=== PATIENT | male | born 1970 | race Caucasian/White ===

== ENCOUNTER 2024-02-01 12:28 | Outpatient (OUT) | payer OTHER, SELFPAY ==
[2024-02-01 12:55] LABS: Basophils Percent Auto 0.4 % (0.2-2.0); Eosinophils Absolute Auto 0.1 10^3/uL (0.0-0.7); Eosinophils Percent Auto 1.4 % (0.9-7.0); Hemoglobin 14.5 g/dL (14.0-18.0); Immature Granulocytes Abs Auto 0.01 10^3/uL (0.00-0.03); Immature Granulocytes Pct Auto 0.1 % (0.0-0.5); Lymphocytes Absolute Auto 1.9 10^3/uL (1.2-3.8); Lymphocytes Percent Auto 24.2 % (20.5-60.0); Mean Corpuscular HGB Conc 33.7 g/dL (29.9-35.2); Mean Corpuscular Hemoglobin 30.7 pg (25.9-34.0); Mean Corpuscular Volume 91.1 fL (80.0-94.0); Mean Platelet Volume 9.2 fL (9.5-13.5); Monocytes Percent Auto 12.5 % (1.7-12.0); Neutrophils Absolute Auto 4.7 10^3/uL (1.4-6.5); Neutrophils Percent Auto 61.4 % (43.0-75.0); Platelet Count 228 10^3/uL (150-450); Red Blood Count 4.72 10^6/uL (4.70-6.10); Red Cell Distribution Width 12.6 % (11.0-15.0); White Blood Count 7.7 10^3/uL (4.0-11.0)
[2024-02-01 13:35] LABS: Alanine Aminotransferase 50 U/L (16-63); Albumin Globulin Ratio 0.9; Albumin Level 3.3 g/dL (3.4-5.0); Alkaline Phosphatase 67 U/L (46-116); Anion Gap 12.1; Aspartate Amino Transferase 27 U/L (15-37); BUN Creatinine Ratio 13.2; Bilirubin Total 0.5 mg/dL (0.2-1.0); Calcium 8.8 mg/dL (8.5-10.1); Carbon Dioxide 29.2 mmol/L (21.0-32.0); Chloride 103 mmol/L (98-107); Estimated GFR (African America >60 (>=60); Estimated GFR (Non-African Ame >60 (>=60); Globulin 3.5 g/dL; Glucose 99 mg/dL (74-106); Magnesium 2.1 mg/dL (1.8-2.4); Potassium 4.3 mmol/L (3.5-5.1); Sodium 140 mmol/L (136-145); Total Protein 6.8 g/dL (6.4-8.2)
== END 2024-02-01 12:29 | disposition home or self-care (01) ==
LOC: LAB 12:32
PROVIDERS: PCP Family Medicine; Visit Provider Family Medicine
DX: M62.838 Other muscle spasm (principal)
CPT/HCPCS: 36415; 80053; 83735; 85025

== ENCOUNTER 2024-11-25 08:25 | Outpatient (OUT) | payer OTHER, SELFPAY ==
--- OUTSIDE RECORDS SUMMARY | 2024-11-25 08:31 | XMS_ITS | CCD ---
Author Organization [facility] Care Team Providers Care Supervisor Receiving And Processing Name Role Phone DR MOSES HUTCHISON Consulting Unavailable JENNIFER, DR LOPES Primary Care Unavailable REQUEST, NONE LISTED Attending Jonela ble REQUEST, NONE LISTED Admitting Unavaila ABDIFATAH Bowden Attending Unavailable ABDIFATAH GREENE Consulting Unavailable ABDIFATAH GREENE Admitting Unavailable Moses Hutchison MD Primary Care Provider [phone] KIM RIVERA Attending Unavailable KIM RIVERA Referring Unavailable JOEL FLORES Attending Unavailable JOEL FLORES Attending Unavailable JOEL FLORES Referring Unavailable JOEL FLORES Attending Unavailable JOEL FLORES Attending Unavailable Allergies Allergy Classification Reported Allergen(s) Allergy Type Date of Onset Reaction(s) Facility (10 sources) Sulfonamides (Antibiotic) Drug Intolerance 4 Hives, Unknown [facility] Medications Current Medications Medication Drug Class(es) Dates Sig (Normalized) Sig (Original) cetirizine hydrochloride 10 mg oral tablet (10 sources) Histamine-1 Receptor Antagonist Start: 10-04-2023 take 1 tablet by mouth once daily cetirizine (ZyrTEC) 10 MG tablet TAKE 1 TABLET BY MOUTH EVERY DAY FOR 30 DAYS 10/04/2023 Active irbesartan 150 mg oral tablet (10 sources) Angiotensin 2 Receptor Jv Start: 05-25-2024 take 1 tablet by mouth once daily irbesartan (Avapro) 150 MG tablet TAKE 1 TABLET BY MOUTH EVERY DAY FOR 30 DAYS 05/25/2024 Active omeprazole 20 mg delayed release oral capsule (10 sources) Proton Pump Inhibitor Start: 05-25-2024 omeprazole (PriLOSEC) [address] capsule TAKE 1 CAPSULE BY MOUTH 30 MINUTES BEFORE MORNING MEAL EVERY DAY FOR 30 DAYS 90 DAYS 05/25/2024 Active Completed/Discontinued Medications Medication Drug Class(es) Dates Sig (Normalized) Sig (Original) methylPREDNISolone (7 sources) Corticosteroid Start: 07-25-2024 End: 08-16-2024 methylPREDNISolone (Medrol Dospak) 4 MG tablets Indications: Strain of left ankle, initial encounter Follow schedule on package instructions 21 tablet 07/25/2024 08/16/2024 Discontinued (Therapy completed) Start: 07-25-2024 methylPREDNISo lone (Medrol Dospak) 4 MG tablets Indications: Strain of left ankle, initial encounter Follow schedule on package instructions 21 tablet 07/25/2024 Active Problems Active Problems Problem Classification Problem Date Documented Da te Episodic/Chronic Other circulatory disease (1 source) Other specified symptoms and signs involving the circulatory and respiratory systems; Translations: [OTH SPEC SX SIGNS INVLV CIRC RS] Onset: 06-23-2022 Episodic Other non-traumatic joint disorders (6 sources) Acute ankle pain; Translations: [Pain in left ankle and joints of left foot] 07-25-2024 Episodic Sprains and strains (18 sources) Strain of muscle and/or tendon of lower leg; Translations: [Strain of unspecified muscle and tendon at ankle and foot level, left foot, initial encounter] Onset: 06-27-2014 07-25-2024 Episodic Unclassified (2 sources) CONTACT W/AND (SUSP) EXPOS COVID-19; Translations: [CONTACT W/AND (SUSP) EXPOS COVID-19] Onset: 06-23-2022 Unclassified (1 source) COUGH, UNSPECIFIED; Translations: [COUGH, UNSPECIFIED] Onset: 06-23-2022 Viral infection (1 source) COVID-19; Translations: [COVID-19] Onset: 06-23-2022 Past or Other Problems Problem Classification Problem Date Documented Da te Episodic/Chronic Unclassified (1 source) CONTACT W/AND (SUSP) EXPOS COVID-19; Translations: [CONTACT W/AND (SUSP) EXPOS COVID-19] Onset: 06-22-2022 Results Test Name Value Interpretation Reference Range Facility MR ANKLE LEFT WO IV CONTRAST on 08-21-2024 MR ANKLE LEFT WO IV CONTRAST EXAM/TECHNIQUE: MR ANKLE LEFT WO IV CONTRAST HISTORY: Left ankle pain. COMPARISON: Radiographs 07/25/2024. RESULT: Cartilage: Tibiotalar and subtalar joint cartilage appears preserved. Ligaments: Talofibular ligaments, tibiofibular ligaments, calcaneofibular ligament and deltoid ligament all appear to be intact. Tendons: Mild distal Achilles tendinosis, without tear, with trace fluid in the retrocalcaneal bursa. Joint Fluid: Physiologic quantity of joint fluid. Bone Marrow: No evidence for fracture, osteochondral lesion, osteomyelitis or other marrow replacing lesion. Plantar Aponeurosis: Plantar aponeurosis in within normal limits. Sinus Tarsi: Sinus tarsi is within normal limits. Muscle: Muscle bulk and signal intensity is within normal limits. Tarsal Tunnel: Tarsal tunnel is within normal limits. Other: No other significant abnormality. IMPRESSION: Mild distal Achilles tendinosis, without tear. Intact appearing ankle ligaments. ELECTRONICALLY SIGNED BY: Demetri Gibbons MD Normal Not Available Comment on above: Order Comment: C9 ap proval can be located in Pt media, please call and schedule pt DONALD No Panel Informationon 08-02 Kusum Chambers MA 08/08/2024 8:28 PM Splint Application Date/Time: 08/02/2024 5:19 PM Performed by: Kusum Chambers MA Authorized by: Joel Flores DO Consent: Consent obtained: Verbal Procedure details: Location: Ankle Ankle location: L ankle Strapping: yes Post-procedure details: Procedure completion: Tolerated Comments: DME was signed by pt Provided pt education for CAM Boot CAM Boot size M given to pt [employer] XR ANKLE 3+ VIEWS LEFTon XR ANKLE 3+ VIEWS LEFT Exam: XR ANKLE 3+ VIEWS LEFT Clinical History: Left ankle pain Reference Exam: No comparison FINDINGS: Congruent bony ankle mortise. Facets of the subtalar joint align appropriately. No acute fracture or other bony lesion. No foreign body. IMPRESSION: No acute abnormality is determined radiographically. Dictated on: 07/25/2024 1:44 PM This report has been electronically signed and approved by the interpreting Radiologist. Normal Not Available XR Ankle - left 3 Viewson Exam: XR ANKLE 3+ VIEWS LEFT Clinical History: Left ankle pain Reference Exam: No comparison FINDINGS: Congruent bony ankle mortise. Facets of the subtalar joint align appropriately. No acute fracture or other bony lesion. No foreign body. IMPRESSION: No acute abnormality is determined radiographically. Dictated on: 07/25/2024 1:44 PM This report has been electronically signed and approved by the interpreting Radiologist. IMAGING Norbert Sarkar MD - 07/25/2024 Exam: XR ANKLE 3+ VIEWS LEFT Clinical History: Left ankle pain Reference Exam: No comparison FINDINGS: Congruent bony ankle mortise. Facets of the subtalar joint align appropriately. No acute fracture or other bony lesion. No foreign body. IMPRESSION: No acute abnormality is determined radiographically. Dictated on: 07/25/2024 1:44 PM This report has been electronically signed and approved by the interpreting Radiologist. [facility] Powervation Radiology Study observation (narrative) [facility] Powervation XR Ankle - left 3 ViewsOrder ed By: Norbert Sarkar on 07-25-2024 [facility] Work Phone: CBC AUTO DIFFon 07-30-2022 BASO # 0.0 103/ul Normal 0.0-0.1 [facility] Comment on above: Performed By: #### D ATCBC #### [facility] [address] [place] [address] Dr. Juan Richards Basophils/100 WBC (Bld) 0.4 % Normal 0.2-2.0 [facility] Comment on above: Performed By: #### D ATCBC #### [facility] [address] [place] [address] Dr. Juan Richards EO # 0.2 103/ul Normal 0.0-0.7 [facility] Comment on above: Performed By: #### D ATCBC #### [facility] [address] [place] [address] Dr. Juan Richards Eosinophils/100 WBC (Bld) 2.1 % Normal 0.9-7.0 [facility] Comment on above: Performed By: #### D ATCBC #### [facility] [address] [place] [address] Dr. Juan Richards Erythrocyte distribution width (RBC) [Ratio] 13.6 % Normal 11.0-15.0 [facility] Comment on above: Performed By: #### D ATCBC #### [facility] [address] [place] [address] Dr. Juan Richards Hematocrit (Bld) [Volume fraction] 42.3 % Normal 42.0-54.0 [facility] Comment on above: Performed By: #### D ATCBC #### [facility] [address] [address] [address] Juan Richards Hemoglobin (Bld) [Mass/Vol] 14.5 g/dL Normal 14.0-18.0 [facility] Comment on above: Performed By: #### D ATCBC #### [facility] [address] [place] [address] Dr. Juan Richards IG # 0.03 10e3/ul Normal 0.00-0.03 [facility] Comment on above: Performed By: #### D ATCBC #### [facility] [address] [place] [address] Dr. Juan Richards IG % 0.4 % Normal 0.0-0.5 [facility] Comment on above: Performed By: #### D ATCBC #### [facility] [address] [place] [address] Dr. Juan Richards LYMPH # 2.3 103/ul Normal 1.2-3.8 [facility] Comment on above: Performed By: #### D ATCBC #### [facility] [address] [place] [address] Dr. Juan Richards Lymphocytes/100 WBC (Bld) 27.8 % Normal 20.5-60.0 [facility] Comment on above: Performed By: #### D ATCBC #### [facility] [address] [place] [address] Dr. Juan Richards MCH (RBC) [Entitic mass] 30.7 pg Normal 25.9-34.0 [facility] Comment on above: Performed By: #### D ATCBC #### [facility] [address] [place] [address] Dr. Juan Richards MCHC (RBC) [Mass/Vol] 34.3 g/dL Normal 29.9-35.2 [facility] Comment on above: Performed By: #### D ATCBC #### [facility] [address] [address] [address] Juan Richards MCV (RBC) [Entitic vol] 89.6 fL Normal 80.0-94.0 [facility] Comment on above: Performed By: #### D ATCBC #### [facility] [address] [address] [address] Juan Richards MONO # 0.9 103/ul Critically high 0.3-0.8 [facility] Comment on above: Performed By: #### D ATCBC #### [facility] [address] [address] [address] Juan Richards Monocytes/100 WBC (Bld) 11.4 % Normal 1.7-12.0 [facility] Comment on above: Performed By: #### D ATCBC #### [facility] [address] [place] [address] Dr. Juan Richards NEUT # 4.7 103/ul Normal 1.4-6.5 [facility] Comment on above: Performed By: #### D ATCBC #### [facility] [address] [place] [address] Dr. Juan Richards Neutrophils/100 WBC (Bld) 57.9 % Normal 43.0-75.0 [facility] Comment on above: Performed By: #### D ATCBC #### [facility] [address] [place] [address] Dr. Juan Richards Platelet mean volume (Bld) [Entitic vol] 9.4 fL Critically low 9.5-13.5 [facility] Comment on above: Performed By: #### D ATCBC #### [facility] [address] [place] [address] Dr. Juan Richards PLT 323 103/ul Normal 150-450 [facility] Comment on above: Performed By: #### D ATCBC #### [facility] [address] [place] [address] Dr. Juan Richards RBC 4.72 106/ul Normal 4.70-6.10 [facility] Comment on above: Performed By: #### D ATCBC #### [facility] [address] [address] [address] Juan Richards WBC 8.2 103/ul Normal 4.0-11.0 [facility] Comment on above: Performed By: #### D ATCBC #### [facility] [address] [place] [address] Dr. Juan Richards KAMALJIT- BMP WITH LIPIDon 2022 Anion gap [Moles/Vol] 12.3 mmol/L Normal [facility] Comment on above: Performed By: #### D ATBMP, DATPSA #### [facility] [address] [place] [address] Dr. Juan Richards Calcium [Mass/Vol] 9.2 mg/dL Normal 8.5-10.1 [facility] Comment on above: Performed By: #### D ATBMP, DATPSA #### [facility] [address] [place] [address] Dr. Juan Richards Chloride [Moles/Vol] 102 mmol/L Normal 98-107 [facility] Comment on above: Performed By: #### D ATBMP, DATPSA #### [facility] [address] [place] [address] Dr. Juan Richards Cholesterol [Mass/Vol] 217 mg/dL Critically high <=200 [facility] Comment on above: Performed By: #### D ATBMP, DATPSA #### [facility] [address] [place] [address] Dr. Juan Richards Cholesterol in HDL [Mass/Vol] 67 mg/dL Critically high 40-60 [facility] Comment on above: Performed By: #### D ATBMP, DATPSA #### [facility] [address] [place] [address] Dr. Juan Richards Cholesterol in LDL [Mass/Vol] 137.8 mg/dL Normal [facility] Comment on above: Performed By: #### D ATBMP, DATPSA #### [facility] [address] [place] [address] Dr. Juan Richards CO2 [Moles/Vol] 28.6 mmol/L Normal 21.0-32.0 [facility] Comment on above: Performed By: #### D ATBMP, DATPSA #### [facility] [address] [address] [address] Juan Richards Creatinine [Mass/Vol] 0.92 mg/dL Normal 0.70-1.30 [facility] Comment on above: Performed By: #### D ATBMP, DATPSA #### [facility] [address] [address] [address] Juan Richards EGFR-AF SUDANESE >60 Normal >=60 [facility] Comment on above: Performed By: #### D ATBMP, DATPSA #### [facility] [address] [address] [address] Juan Richards EGFR-NON AF SUDANESE >60 Normal >=60 [facility] Comment on above: Performed By: #### D ATBMP, DATPSA #### [facility] [address] [address] [address] Juan Richards Glucose [Mass/Vol] 94 mg/dL Normal 74-106 [facility] Comment on above: Performed By: #### D ATBMP, DATPSA #### [facility] [address] [address] [address] Juan Richards HDL NORMAL > or = 60 mg/dl - LO W CARDIOVASCULAR RISK <40 mg/dl - HIGH CARDIOVASCULAR RISK Normal [facility] Comment on above: Performed By: #### D ATBMP, DATPSA #### [facility] [address] [address] [address] Juan Richards LDL CALC NORMAL SEE BELOW Normal [facility] Comment on above: Result Comment: <100 mg/dl OPTIMAL 100 - 129 mg/dl NEAR OR ABOVE OPTIMAL 130 - 159 mg/dl BORDERLINE HIGH 160 - 189 mg/dl HIGH >190 mg/dl VERY HIGH Performed By: #### D ATBMP, DATPSA #### [facility] [address] [address] [address] Juan Richards Potassium [Moles/Vol] 3.9 mmol/L Normal 3.5-5.1 [facility] Comment on above: Performed By: #### D ATBMP, DATPSA #### [facility] [address] [place] [address] Dr. Juan Richards Sodium [Moles/Vol] 139 mmol/L Normal 136-145 [facility] Comment on above: Performed By: #### D ATBMP, DATPSA #### [facility] [address] [place] [address] Dr. Juan Richards Triglyceride [Mass/Vol] 61 mg/dL Normal <=150 [facility] Comment on above: Performed By: #### D ATBMP, DATPSA #### [facility] [address] [place] [address] Dr. Juan Richards Urea nitrogen [Mass/Vol] 18.0 mg/dL Normal 7.0-18.0 [facility] Comment on above: Performed By: #### D ATBMP, DATPSA #### [facility] [address] [place] [address] Dr. Juan Richards Urea nitrogen/Creatinine [Mass ratio] 19.6 mg/mg Normal [facility] Comment on above: Performed By: #### D ATP, DATPSA #### [facility] [address] [place] [address] Dr. Juan Richards VLDL CALC 12.2 mg/dL Normal [facility] Comment on above: Performed By: #### D ATBMP, DATPSA #### [facility] [address] [place] [address] Dr. Juan Richards Covid-19 PCR (CVDTB)on SARS-CoV-2 (COVID-19) RNA DAMION+probe Ql (Unsp spec) Detected Abnormal NOT DETECTED [facility] Comment on above: Result Comment: This test is not yet approved or cleared by the [place] FDA. When there are no FDA-approved or cleared tests available, and other criteria are met, FDA can make tests available under an emergency access mechanism called an Emergency Use Authorization (EUA). The EUA for this test is supported by the [place] of Health and Human Service's declaration that circumstances exist to justify the emergency use of in vitro diagnostics for the detection and/or diagnosis of the virus that causes COVID-19. This EUA will remain in effect for the duration of the COVID-19 declaration justifying emergency of IVDs, unless it is terminated or revoked by the FDA (after which the test may no longer be used). Performed By: #### C VDTB #### [facility] [address] [place] [address] Dr. Juan Richards INFLUENZA A AND B AGon 06-22 [facility] SEE BELOW Normal [facility] Comment on above: Result Comment: Nega tive for Flu A protein angiten. Infection due to Flu A cannot be ruled out. Flu A angiten in the sample may be below the detection limit of the test. Performed By: #### I NFLUAB #### [facility] [address] [place] [address] Dr. Juan Richards [facility] SEE BELOW Normal [facility] Comment on above: Result Comment: Nega tive for Flu B protein antigen. Infection due to Flu B cannot be ruled out. Flu B antigen in the sample may be below the detection limit of the test. Performed By: #### I NFLUAB #### [facility] [address] [place] [address] Dr. Juan Richards INFLUENZA A AG Negative Normal NEGATIVE SEE COMMENT [facility] Comment on above: Performed By: #### I NFLUAB #### [facility] [address] [place] [address] Dr. Juan Richards INFLUENZA B AG Negative Normal NEGATIVE SEE COMMENT [facility] Comment on above: Performed By: #### I NFLUAB #### [facility] [address] [place] [address] Dr. Juan Richards Vital Signs Date Time Vital Sign Value Performing Clinician Faci lity 2024 15:32-0400 Body temperature 98.01 [degF] Joel Flores DO Work Phone: [facility] 2024 15:32-0400 Body weight 90.72 kg Joel Flores DO Work Phone: [facility] 2024 15:32-0400 Diastolic blood pressure 80 mm[Hg] Joel Flores DO Work Phone: [facility] 2024 15:32-0400 Heart rate 80 /min Joel Flores DO Work Phone: [facility] 2024 15:32-0400 SaO2% (BldA) [Mass fraction] 99 % Joel Flores DO Work Phone: [facility] 2024 15:32-0400 Systolic blood pressure 122 mm[Hg] Joel Flores DO Work Phone: [facility] 08-16-2024 14:31-0500 Body temperature 97.11 [degF] Joel Flores DO Work Phone: [facility] 08-16-2024 14:31-0500 Body weight 90.72 kg Joel Flores DO Work Phone: [facility] 08-16-2024 14:31-0500 Diastolic blood pressure 80 mm[Hg] Joel Flores DO Work Phone: [facility] 08-16-2024 14:31-0500 Heart rate 71 /min Joel Flores DO Work Phone: [facility] 08-16-2024 14:31-0500 SaO2% (BldA) [Mass fraction] 97 % Joel Flores DO Work Phone: [facility] 08-16-2024 14:31-0500 Systolic blood pressure 128 mm[Hg] Joel Flores DO Work Phone: [facility] 08-02-2024 16:04-0500 Body temperature 98.01 [degF] Joel Flores DO Work Phone: [facility] 08-02-2024 16:04-0500 Body weight 90.72 kg Joel Flores DO Work Phone: [facility] 08-02-2024 16:04-0500 Diastolic blood pressure 80 mm[Hg] Joel Flores DO Work Phone: [facility] 08-02-2024 16:04-0500 Heart rate 74 /min Joel Flores DO Work Phone: [facility] 08-02-2024 16:04-0500 SaO2% (BldA) [Mass fraction] 98 % Joel Flores DO Work Phone: [facility] 08-02-2024 16:04-0500 Systolic blood pressure 112 mm[Hg] Joel Crewsconsuelo DO Work Phone: [facility] 07-25-2024 13:02-0500 Body temperature 97 [degF] Kim Rivera [employer]ERK Work Phone: [facility] 07-25-2024 13:02-0500 Body weight 90.72 kg Kim Rivera [employer] CLERK Work Phone: [facility] 07-25-2024 13:02-0500 Diastolic blood pressure 80 mm[Hg] Kim Rivera [employer] CLERK Work Phone: [facility] 07-25-2024 13:02-0500 Heart rate 91 /min Kim Rivera [employer] CLERK Work Phone: [facility] 07-25-2024 13:02-0500 SaO2% (BldA) [Mass fraction] 96 % Kim Rivera [employer] CLERK Work Phone: [facility] 07-25-2024 13:02-0500 Systolic blood pressure 136 mm[Hg] Kim Rivera [employer] CLERK Work Phone: [facility] Healthcare Encounters Encounter Date Encounter Type Care Provider Facility Start: 2024 End: 2024 ambulatory JOEL FLORES Not Available Start: 2024 End: 2024 Office outpatient visit 15 minutes Joel Flores DO Work Phone: [facility] Comment on above: Strain of left ankle , initial encounter; Acute left ankle pain Start: 2024 End: 2024 Bamboo flowsheet Joel Flores DO Work Phone: [facility] Start: 2024 End: 2024 Bamboo flowsheet Joel Flores DO Work Phone: [facility] Start: 08-23-2024 End: 08-23-2024 ambulatory JOEL FLORES Not Available Start: 08-21-2024 End: 08-21-2024 ambulatory JOEL FLORES Not Available Start: 08-16-2024 End: 08-16-2024 ambulatory JOEL FLORES Not Available Start: 08-16-2024 End: 08-16-2024 Office outpatient visit 25 minutes Joel Flores DO Work Phone: [facility] Comment on above: Strain of left ankle , initial encounter (Primary Dx) Start: 08-16-2024 End: 08-16-2024 Bamboo flowsheet Joel Flores DO Work Phone: [facility] Start: 08-16-2024 End: 08-16-2024 Bamboo flowsheet Joel Flores DO Work Phone: [facility] Start: 08-02-2024 End: 08-02-2024 Office outpatient visit 25 minutes Joel Flores DO Work Phone: [facility] Comment on above: Strain of left ankle , initial encounter; Acute left ankle pain Start: 08-02-2024 End: 08-02-2024 ambulatory JOEL FLORES Not Available Start: 07-25-2024 End: 07-25-2024 ambulatory KIM RIVERA Not Available Start: 07-25-2024 End: 07-25-2024 Office outpatient new 45 minutes Kim Rivera [employer]ERK Work Phone: [facility] Comment on above: Strain of left ankle , initial encounter (Primary Dx); Acute left ankle pain Start: 07-30-2022 End: 07-31-[address] MOSES HUTCHISON Facility:[facility] Start: 06-22-2022 End: 06-22-2022 ambulatory ABDIFATAH GREENE Facility:[facility] Procedures Date Procedure Procedure Detail Performing Clinician Start: 08-02-2024 Strapping ankle &/foot Kusum Chambers MA Start: 07-25-2024 Radex ankle complete minimum 3 views Kim Rivera [employer] CLERK Work Phone: Start: 07-30-[address] DANNA HUTCHISON Comment on above: Performed By: #### D ATBM, DATPSA #### [facility] [address] [place], [place] [address] Dr. Juan Richards Plan of Treatment Date Care Activity Detail Author Start: 08-16-2024 End: 08-16-2024 Patient encounter procedure 08/16/2024 4:00 PM EST Office Visit [facility] [address] [place] [address] [facility] Start: 08-02-2024 End: 08-02-2024 Patient encounter procedure 08/02/2024 6:00 PM EST Office Visit [facility] [address] [place] [address] [facility] Payers Date Payer Category Payer Worker's Compensation [id number] [id number] 2024 Worker's Compensation [id number] 1970 Unknown [id number] 2.16.84 [id number] 1970 Unknown [id number] 2.16.84 [id number] 1969 Unknown [id number] 2.16.84 [id number] 1969 Unknown [id number] 2.16.84 [id number] 1969 Unknown [id number] 2.16.84 [id number] 1969 Unknown [id number] 2.16.84 [id number] 1970 Unknown [id number] 2.16.84 [id number] 1970 Unknown [id number] 2.16.84 [id number] 1970 Unknown [id number] 2.16.84 [id number] 1970 Unknown [id number] 2.16.84 [id number] 1960 Self-pay 1960 Unknown [id number] Unknown [id number] 2.16.84 [id number] Social History Date Type Detail Facility [facility] Start: 1970 Sex assigned at Not on file [facility] Gender identity Not on file [facility] History of Present illness Narrative 2024 Neda Cancino LPN - 2024 3:05 PM EDT Note Date & Type Note Facility 2024 History of Presen t illness Narrative HPI: Historian of HPI: patient Sylvain Dubois is a 54 y.o. male Pt presents today 2024 for a [facility] follow up visit - ASUNCION: [facility] . DOI: 05/15/2024 . 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 Pt denies any pain or issues at this time. ROS: A complete system ROS was performed and negative aside from the pertinent positives noted in the HPI and PE. Examination: General Examination: General Examination: Alert, oriented, normal affect, well-appearing, in no acute distress, well developed, well nourished. Head: Normocephalic, atraumatic Eyes: Sclera anicteric. Neck/Thyroid: Neck supple, full range of motion Lymph Nodes: no cervical adenopathy Skin: Normal Heart: no murmurs, regular rate and rhythm, S1, S2 normal Lungs: clear to auscultation bilaterally Musculoskeletal: left ankle; no swelling or tenderness noted over the achilles. FROM Sonido's neg. Sammie's neg. Extremities: no clubbing, cyanosis Peripheral Pulses: 2+ posterior tibial, 2+ dorsalis pedis Neurologic: nonfocal Psych: alert, oriented, cognitive function intact, cooperative with exam HPI, ROS, and PE reviewed and amended by Dr. Joel Flores as necessary. Written by LOKESH Mendez 1. Strain of left ankle, initial encounter Dx reviewed. Pt back to normal, pt is discharged at this time. 2. Acute left ankle pain Dx reviewed documented in this encounter [facility] History of Present illness Narrative 08-16-2024 Kimberly Head MA - 08/16/2024 2:20 PM EST Note Date & Type Note Facility 08-16-2024 History of Presen t illness Narrative Pt presents today for a [facility] follow up visit - ASUNCION: [facility]. DOI: 05/15/2024 HPI: Historian of HPI: patient Sylvain Dubois is a 53 y.o. male who presents today to the Urgent Care with the following complaints and denials due left ankle pain which has been present for since 05/15/2024 C/O Denies Symptom Comments [] [x] swelling [] [x] ecchymosis [] [x] erythema [] [x] tingling [] [x] numbness [] [x] Pain radiation [x] [] Weakness [] [x] Decreased ROM [x] [] Trauma [facility] Additional Comments: pt has not taken any OTC medications Pt denies heat application to the affected area Pt denies cold application to the affected area Pt stated he is tired of wearing the boot and is tired of light duty where its cold pt stated employer is now following restrictions. Pt stated he would rather deal with the pain than wear the boot. Pt stated he needs a different brace so that he can wear his boots. Pt stated the pain is no longer going up the back of his leg. ROS: A complete system ROS was performed and negative aside from the pertinent positives noted in the HPI and PE. Examination: General Examination: General Examination: Alert, oriented, normal affect, well-appearing, in no acute distress, well developed, well nourished. Head: Normocephalic, atraumatic Eyes: Sclera anicteric. Neck/Thyroid: Neck supple, full range of motion Lymph Nodes: no cervical adenopathy Skin: Early ecchymosis noted diffusely around lateral aspect of ankle Heart: no murmurs, regular rate and rhythm, S1, S2 normal Lungs: clear to auscultation bilaterally Musculoskeletal: left ankle; tenderness Slight over the swelling over proximal achilles, Slight swelling over the proximal achilles tendon. Increased with full dorsiflexion and Head's neg. Drawer's neg. Extremities: no clubbing, cyanosis Peripheral Pulses: 2+ posterior tibial, 2+ dorsalis pedis Neurologic: nonfocal Psych: alert, oriented, cognitive function intact, cooperative with exam HPI, ROS, and PE reviewed and amended by Dr. Joel Flores as necessary. Written by LOKESH Mendez 1. Strain of left ankle, initial encounter Dx reviewed awaiting approval for MRI. Sit down work only. RTC 08/30/24 @ 4 pm. Case discussed with Christen from [facility]. 2. Acute left ankle pain Dx reviewed documented in this encounter [facility] History of Present illness Narrative 08-02-2024 Neda Cancino LPN - 08/02/2024 3:50 PM Vivek Chambers MA - 08/02/2024 3:50 PM EST Note Date & Type Note Facility 08-02-2024 History of Presen t illness Narrative HPI: Historian of HPI: patient Sylvain Dubois is a 53 y.o. male Pt presents today 08/02/2024 for a [facility] follow up visit for left ankle/foot injury- ASUNCION: [facility] . DOI: 05/15/2024 . 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 Pt rates pain 8/10 and states it feels unstable up the back of his ankle. Pt had some relief for one day . Pt states at work he has to change pout boots and insoles from the pain. Pt c/o difficulty walking. Pt not taking anything OTC for pain at time. Pt states I'm on light duty but they don't really have light duty there . ROS: A complete system ROS was performed and negative aside from the pertinent positives noted in the HPI and PE. Examination: General Examination: General Examination: Alert, oriented, normal affect, well-appearing, in no acute distress, well developed, well nourished. Head: Normocephalic, atraumatic Eyes: Sclera anicteric. Neck/Thyroid: Neck supple, full range of motion Lymph Nodes: no cervical adenopathy Skin: Early ecchymosis noted diffusely around lateral aspect of ankle Heart: no murmurs, regular rate and rhythm, S1, S2 normal Lungs: clear to auscultation bilaterally Musculoskeletal: left ankle; tenderness from the insertion site of the achilles tendon superior to involve the tendon, Slight swelling over the proximal achilles tendon. Increased with full dorsiflexion and Head's neg. Drawer's neg. Extremities: no clubbing, cyanosis Peripheral Pulses: 2+ posterior tibial, 2+ dorsalis pedis Neurologic: nonfocal Psych: alert, oriented, cognitive function intact, cooperative with exam HPI, ROS, and PE reviewed and amended by Dr. Joel Flores as necessary. Written by LOKESH Mendez 1. Strain of left ankle, initial encounter Dx reviewed Submit C9 for Cam boot, Sit down work only. RTC 08/16/24 at 4 pm. Case discussed with Christen from [facility]. 2. Acute left ankle pain Dx reviewed Associated Order(s): Splint Application Post-Procedure Diagnose(s): Strain of left ankle, initial encounter Images from the original note were not included. Patient ID: Sylvain Dubois is a 53 y.o. male. Splint Application Date/Time: 08/02/2024 5:19 PM Performed by: Kusum Chambers MA Authorized by: Joel Flores DO Consent: Consent obtained: Verbal Procedure details: Location: Ankle Ankle location: L ankle Strapping: yes Post-procedure details: Procedure completion: Tolerated Comments: DME was signed by pt Provided pt education for CAM Boot CAM Boot size M given to pt documented in this encounter [facility] History of Present illness Narrative 07-25-2024 Kim Rivera NP - 07/25/2024 12:30 PM EST Note Date & Type Note Facility 07-25-2024 History of Presen t illness Narrative Pt presents today for a [facility] initial visit - ASUNCION: [facility]. DOI: 05/15/2024 . 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 male who presents today to the Urgent Care with the following complaints and denials due left foot pain which has been present since 05/15/2024 C/O Denies Symptom Comments [x] [] swelling Maybe a little [] [x] ecchymosis [] [x] erythema [] [x] tingling [] [x] numbness [x] [] Pain radiation Sometimes up bottom of foot [x] [] Weakness [x] [] Decreased ROM [x] [] Trauma Additional Comments: pt has taken motrin OTC medication without relief Pt admits to heat application to the affected area Pt stated most of his pain is on the bottom of his feel. Pt stated he felt a pop Pt stated the longer the day goes, the worse it feels. Pt stated when he gets home from work it really bothers him to get out of his vehicle and walk. ROS: A complete system ROS was performed and negative aside from the pertinent positives noted in the HPI and PE. Examination: General Examination: General Examination: Alert, oriented, normal affect, well-appearing, in no acute distress, well developed, well nourished. Head: Normocephalic, atraumatic Eyes: Sclera anicteric. Neck/Thyroid: Neck supple, full range of motion Skin: no rash or ecchymosis to left foot and ankle. Musculoskeletal: left ankle; tenderness over calcaneous. Tenderness over insertion site of achilles. No tenderness over calf. Head's sign neg. FROM ankle with posterior tenderness with dorsi and plantar flexion. Extremities: no clubbing, cyanosis Peripheral Pulses: 2+ posterior tibial, 2+ dorsalis pedis left Neurologic: nonfocal Psych: alert, oriented, cognitive function intact, cooperative with exam 1. Strain of left ankle, initial encounter (Primary) Xray left ankle obtained; prelim interp neg for fx, pos for STS. Warm soaks as directed. Due to ongoing sx, will submit C9 for MRI left ankle w/o and ortho consult. RTW with restrictions, -see medco 14. Follow up next Wed for recheck. Start medrol-see rx, discussed Se, no NSAIDS with use. 2. Acute left ankle pain See 1 - XR ankle 3+ views left documented in this encounter [facility] Evaluation note Note Date & Type Note Facility Evaluation note Diagnosis Strain of left ankle, initial encounter- Primary Acute left ankle pain documented in this encounter [facility] Evaluation note Note Date & Type Note Facility Evaluation note Diagnosis Strain of left ankle, initial encounter Acute left ankle pain documented in this encounter [facility] Evaluation note Note Date & Type Note Facility Evaluation note Diagnosis Strain of left ankle, initial encounter- Primary documented in this encounter [facility] Evaluation note Note Date & Type Note Facility Evaluation note Diagnosis Strain of left ankle, initial encounter Acute left ankle pain documented in this encounter [facility] Summary Purpose Family History No Family History Records FoundNo Family History Records Found Advance Directives No Advanced Directives Records FoundNo Advanced Directives Records Found Additional Source Comments (unrecognized sect ion and content) No Status Records FoundNo Status Records Found INFORMATION SOURCE (unrecogn ized section and content) DATE CREATED AUTHOR 07/31/2022 [facility] DATE CREATED AUTHOR 'S ORGANIZ ATION 09/07/2024 [facility] EPIC Care Teams (unrecognized sec tion and content) Supervisor Receiving And Processing Relationship Specialty Start Date End Date Moses Hutchison MD [address] [place] [address] PCP - General Family Medicine 07/25/24 Supervisor Receiving And Processing Relationship Specialty Start Date End Date Moses Hutchison MD [address] [place] [facility] [place] [address] PCP - General Family Medicine 07/25/24 Supervisor Receiving And Processing Relationship Specialty Start Date End Date Moses Hutchison MD [address] [place] [facility] [place] [address] PCP - General Family Medicine 07/25/24 Supervisor Receiving And Processing Relationship Specialty Start Date End Date Moses Hutchison MD [address] [place] [id number] PCP - General Family Medicine 07/25/24 Supervisor Receiving And Processing Relationship Specialty Start Date End Date Moses Hutchison MD [address] [place] [address] PCP - General Family Medicine 07/25/24 Supervisor Receiving And Processing Relationship Specialty Start Date End Date Moses Hutchison MD [address] [place] [address] PCP - General Family Medicine 07/25/24 FOR RECORDS PERTAINING TO PATIENTS WHO ARE OR HAVE BEEN ENROLLED IN A CHEMICAL DEPENDENCY/SUBSTANCEABUSE PROGRAM, SOME INFORMATION MAY BE OMITTED. This clinical summary was aggregated from multiple sources. Caution should be exercised in using it in the provision of clinical care. This summary normalizes information from multiple sources, and as a consequence, information in this document may materially change the coding, format and clinical context of patient data. In addition, data may be omitted in some cases. CLINICAL DECISIONS SHOULD BE BASED ON THE PRIMARY CLINICAL RECORDS. [facility]. provides no warranty or guarantee of the accuracy or completeness of information in this document.
[2024-11-25 09:13] LABS: Basophils Percent Auto 0.7 % (0.2-2.0); Eosinophils Absolute Auto 0.3 10^3/uL (0.0-0.7); Eosinophils Percent Auto 4.8 % (0.9-7.0); Hemoglobin 20.2 g/dL (14.0-18.0); Immature Granulocytes Abs Auto 0.01 10^3/uL (0.00-0.03); Immature Granulocytes Pct Auto 0.2 % (0.0-0.5); Lymphocytes Absolute Auto 1.6 10^3/uL (1.2-3.8); Lymphocytes Percent Auto 28.4 % (20.5-60.0); Mean Corpuscular HGB Conc 34.8 g/dL (29.9-35.2); Mean Corpuscular Hemoglobin 31.4 pg (25.9-34.0); Mean Corpuscular Volume 90.2 fL (80.0-94.0); Mean Platelet Volume 10.2 fL (9.5-13.5); Monocytes Absolute Auto 0.7 10^3/uL (0.3-0.8); Monocytes Percent Auto 12.5 % (1.7-12.0); Neutrophils Percent Auto 53.4 % (43.0-75.0); Platelet Count 241 10^3/uL (150-450); Red Blood Count 6.43 10^6/uL (4.70-6.10); Red Cell Distribution Width 13.2 % (11.0-15.0); White Blood Count 5.7 10^3/uL (4.0-11.0)
[2024-11-25 09:59] LABS: Alanine Aminotransferase 25 U/L (16-63); Albumin Globulin Ratio 1.1; Albumin Level 3.6 g/dL (3.4-5.0); Alkaline Phosphatase 88 U/L (46-116); Anion Gap 16.7; Aspartate Amino Transferase 17 U/L (15-37); BUN Creatinine Ratio 16.2; Bilirubin Total 0.5 mg/dL (0.2-1.0); Calcium 9.2 mg/dL (8.5-10.1); Carbon Dioxide 24.5 mmol/L (21.0-32.0); Chloride 104 mmol/L (98-107); Chol HDL Ratio 2.2; Cholesterol 162 mg/dL (<=200); Estimated GFR (African America >60 (>=60 mL/min/1.73m^2); Estimated GFR (Non-African Ame >60 (>=60 mL/min/1.73m^2); Globulin 3.4 g/dL; Glucose 83 mg/dL (74-106); HDL Cholesterol 73 mg/dL (40-60); Potassium 4.2 mmol/L (3.5-5.1); Sodium 141 mmol/L (136-145); Thyroid Stimulating Hormone 1.573 uIU/mL (0.358-3.740); Triglycerides 149 mg/dL (<=150); VLDL CHOLESTEROL 29.8 mg/dL
[2024-11-25 10:10] LABS: Prostate Specific Antigen Scrn 0.88 ng/mL (<=4.00)
[2024-11-25 10:15] LABS: Estimated Average Glucose 114 mg/dL; Glycohemoglobin A1C 5.6 % (4.5-6.2)
== END 2024-11-25 08:26 | disposition home or self-care (01) ==
PROVIDERS: PCP Family Medicine; Visit Provider Family Medicine
DX: Z00.00 Encounter for general adult medical examination without abnormal findings (principal); R73.09 Other abnormal glucose; R53.83 Other fatigue; Z12.5 Encounter for screening for malignant neoplasm of prostate
CPT/HCPCS: 36415; 80053; 80061; 83036; 84436; 84443; 84481; 85025; G0103

== ENCOUNTER 2024-11-27 14:49 | Outpatient (REF) | payer OTHER, SELFPAY ==
[2024-11-27 15:34] LABS: Internal Control Within Normal Limits; Occult Blood Negative
== END 2024-11-27 14:50 | disposition home or self-care (01) ==
LOC: LAB 14:49
PROVIDERS: PCP Family Medicine; Visit Provider Family Medicine
DX: Z00.00 Encounter for general adult medical examination without abnormal findings (principal)
CPT/HCPCS: G0328

== ENCOUNTER 2024-11-28 15:00 | Outpatient (OUT) | payer OTHER, SELFPAY ==
--- OUTSIDE RECORDS SUMMARY | 2024-11-20 03:52 | XMS_ITS ---
Author Organization [facility] in [place] Address [address] [place] [address] Care Team Providers Care Government Operations Consultant Name Role Phone FosterSamm Primary Care Provider REASON FOR VISIT need yearly Encounters Encounter Location Date Provider Diagnosis [facility] [address] [place] [address] 11/20/2024 Samm Hutchison Plan Of Treatment No Information Progress Notes * Sylvain DUBOISDOB: (54 yo M)Acc No.[id number]:11/20/2024 Patient: Дмитрий ROONEYSylvain GREEN :1970 A ge:54 Y S ex:Male Address:[address], [place] [address] * true * Date: Generated for Shaheen mishra/Yakov/eTransmitting on: 0 11/28/2024 03:02 PM EDT
--- OUTSIDE RECORDS SUMMARY | 2024-11-22 12:15 | XMS_ITS ---
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 Paperhanging Name Role Phone Samm Hutchison Primary Care Provider Allergies Allergen (clinical drug ingredient) Drug/Non Drug Allergy documented on EMR Reaction Allergy Type Onset Date Status lisinopril Lisinopril cough Drug Allergy Activ e Substance with sulfonamide structure and antibacterial mechanism of action (substance) Sulfa Antibiotics Unknown Drug Allergy Active REASON FOR VISIT annual wellness, left foot inflammation/swelling Medications Medication SIG (Take, Route, Fr equency, Duration) Notes Start Date End Date Status Cetirizine HCl 10 MG 1 tablet Orally Onc e a day for 30 days 09/26/2024 Active Meloxicam 15 MG 1 tablet Orally Once a day for 30 days 11/22/2024 Active Irbesartan 150 MG 1 tablet Orally Once a day for 30 days Active Omeprazole 20 MG 1 capsule 1/2 to 1 h our before morning meal Orally Once a day for 30 days 09/15/2024 Active Social History Tobacco Use: Social History Observation Description Date Details (start date - stop date) Never Smoker NA - NA Tobacco Use/Smoking Question Answer Notes Patient is a nonsmoker AUDIT-C (Standard) Question Answer Notes Did you have a drink containing alcohol in the p ast year? No Points 0 Interpretation Negative Vital Signs Weight 199 lbs 11/22/2024 Height 68 in 11/22/2024 Blood pressure systolic 132 mm Hg 11/23/19 25 Blood pressure diastolic 80 mm Hg 025 BMI 30.25 kg/m2 11/22/2024 Encounters Encounter Location Date Provider Diagnosis [facility] [address] [facility] [place] [address] 11/22/2024 Samm Hutchison Well adult Z00.00 an d Plantar fasciitis M72.2 Assessments Encounter Date Diagnosis (ICD Code) Assessment Notes Treatment Notes Treatment Clinical Notes Section Notes 11/22/2024 Well adult (ICD-10 - Z00.00) 11/22/2024 Plantar fasciitis (ICD-10 - M72.2) Plan Of Treatment Medication Medication Name Sig Start Date Stop Date Notes Meloxicam 15 MG 1 tablet Orally Once a day for 30 days 04/2025 Pending Test Test Name Order Date HEMOGLOBIN A1C (GLYCO) 11/22/2024 LIPID PANEL (CHOL/TRIG/HDL/LDL) 11/23/19 25 STOOL OCCULT BLOOD 11/22/2024 THYROID PANEL (T4/TSH/FREE T3) PSA, SCREENING 11/22/2024 CMP (COMP MET QUINONES) w/eGFR CKD-EPI 2024 CBC WITH DIFF 11/22/2024 Progress Notes * Sylvain DUBOISDOB: (54 yo M)Acc No.[id number]:11/22/2024 Progress Note Patient: Дмитрий AARONSylvain BANERJEE Provider: Geovany Hutchison ([facility])MD :1970 A ge:54 Y S ex:Male Date:11/22/2024 Address:[address] [place], [place] [id number] Check In:03:44 PM ESTCheck O ut:04:43 PM EST Subjective: * Chief Complaints: * A nnual wellnessLeft foot inflammation/swelling * HPI: D epression Screening: PHQ-2 (2015 Edition) L ittle interest or pleasure in doing things??Not at all F eeling down, depressed, or hopeless? N ot at all T otal Score 0 Left heel - with pain first thing - and worse as day goes along no ther issu. * ROS: E ENT: hearing changes d enies. v isual changes d enies.?non-healing mouth sores d enies. s wollen glands or neck lumps d enies. h oarseness d enies. s ore throat d enies. d ifficulty swallowing d enies. n ose bleeds d enies. n devante congestion d enies. e ar ache d enies. e ar discharge?denies. r inging in ears d enies. l ight sensitivity d enies. e ye pain d enies. b lurring d enies. e ye irritation d enies. d ouble vision d enies.?vision loss d enies. G eneral/Constitutional: Sweats: D enies. F atigue d enies. S leep problems d enies. A norexia d enies. M alaise d enies. W eight loss d enies.?Fatigue or Weakness d enies. F ever or Chills d enies. C ardiovascular: Shortness of Breath w/lying flat d enies. L ightheadedness/dizziness d enies. C hest tightness/ heavy pressure d enies. S welling of legs, ankles, or feet d enies. W aking up with shortness of breath d enies. C hest pain denies. P alpitations d enies. W eight gain d enies. R espiratory: Chronic or frequent cough d enies. C oughing up blood?denies. D ifficulty breathing d enies. P roductive cough d enies. S noring?denies. S hortness of breath that awakens from sleep (PND) d enies. C hest pain d enies. S putum production d enies. W heezing d enies. M usculoskeletal: Joint pain d enies. J oint Fluid d enies. B ack pain d enies. K nee pain d enies. N kev pain d enies. J oint Stiffness d enies. M uscle cramps d enies. W eakness of muscles d enies. A rthritis d enies. M uscle aches d enies. P ain in shoulder(s) d enies. S wollen joints d enies. * Active Problem List M72.2 Plantar fasciitis Modified On:08/04/2023W/U Status:confirmed Z00.00 Well adult Modified On:08/04/2023W/U Status:confirmed L25.9 Contact dermatitis Modified On:01/06/2024W/U Status:confirmed M62.838 Muscle spasm Modified On:02/01/2024W/U Status:confirmed D75.1 Polycythemia Modified On:11/27/2024W/U Status:confirmed * Medical History: * Surgical History: M eniscectomy lateral Plate and Seven screws in right ankle * Hospitalization/Major Diagno stic Procedure: N o Hospitalization History. * Family History: F ather: unknown. M other: alive. B rother(s): alive. S ister(s): alive. D osorioer(s): alive. 1 brother(s) , 4 sister(s) . 1 daughter(s) . . Biological father unknown. * Social History: T obacco Use: T obacco Use/Smoking P atient is a n onsmoker D rug/Alcohol: A EZEQUIEL-C (Standard) D id you have a drink containing alcohol in the past year? N o P oints 0 I nterpretation N egative * Medications: T akingCetirizine HCl 10 MG Tablet 1 tablet Orally Once a day Irbesartan 150 MG Tablet 1 tablet Orally Once a day Omeprazole 20 MG Capsule Delayed Release 1 capsule 1/2 to 1 hour before morning meal Orally Once a day Medication List reviewed and reconciled with the patientTaking Cetirizine HCl 10 MG Tablet 1 tablet Orally Once a day Taking Irbesartan 150 MG Tablet 1 tablet Orally Once a day Taking Omeprazole 20 MG Capsule Delayed Release 1 capsule 1/2 to 1 hour before morning meal Orally Once a day Medication List reviewed and reconciled with the patient * Allergies: S ulfa AntibioticsLisinopril: cough - Allergyno[Allergies Verified] Objective: * Vitals: W t:199lbs, Ht: 68 in, BP:132/80mm Hg, BMI:30.25Index, Ht-cm: 172.72 cm, Wt-k.27 kg. * Examination: P hysical Exam: GENERAL: w ell developed, well nourished, in no acute distress. HEAD: n ormocephalic/atraumatic. EYES: p upils equal, round and reactive to light, conjunctivae and sclerae normal. EARS: n o deformity or lesion of external ear, canals and TM appear normal bilaterally, TM's intact, not inflamed with normal light reflex, hearing grossly normal to conversational speech. NOSE: n o deformity, discharge, inflammation, or lesions.? MOUTH: m ucous membranes moist, normal oropharynx and posterior pharynx without lesions or exudates, tongue normal, dentition normal. NECK: n kev supple, no masses or palpable cervical nodes, trachea midline, thyroid without nodules, masses, tenderness, or enlargement. CHEST: n o chest wall deformity, no chest wall tenderness.? LUNGS: n ormal respiratory effort and clear to auscultation, no wheezes, rales, or rhonchi, good air exchange. CARDIO: r egular rate and rhythm, normal S1 and S2, nor murmur, rub, or gallop. PULSES: n ormal capillary refill. ABDOMEN: s oft, non-distended, non-tender, no masses. MUSCULOSKELETAL: n o deformity or scoliosis noted, normal range of motion, joints normal, no erythema, edema, effusion, or ecchymosis. EXTREMITY: n o clubbing, cyanosis, edema, or deformity with normal ROM in both upper and lower bilateral extremities. NEUROLOGIC: g rossly normal. SKIN: n o rashes, ulcerations, or suspicious lesions. LYMPH NODES: n o cervical adenopathy, nodes normal. MENTAL STATUS: a lert and oriented x3, normal mood and affect. Assessment: * Assessment: 1. W ell adult - Z00.00 (Primary) 2 . P lantar fasciitis - M72.2 Plan: * Treatment: * Procedure Codes: * Preventive Medicine: Screenings/Counseling: B GA ACTION PLAN Above Normal BMI Follow-up D ietary management education, guidance, and counseling * * Sign off status: Completed Visit Status: C HK (Check Out) true * Provider: Geovany Hutchison ([facility])MD Date: 0 11/22/2024 Generated for Shaheen mishra/Yakov/eTransmitting on: 0 11/28/2024 03:02 PM EDT History and Physical Notes * HPI (History of Present Illness) Category Sub-Category Detail Notes Category Not es Depression Screening PHQ-2 (2015 Edition) Little interest or pleasure in doing things?: Not at all Left heel - with pain first thing - and worse as day goes along no ther issu Feeling down, depressed, or hopeless?: N ot at all Total Score: 0 Examination Category Sub-Category Detail Notes Category Not es Physical Exam GENERAL: well developed, well nourished, in no acute distress HEAD: normocephalic/atraum atic EYES: pupils equal, round and reactive to light, conjunctivae and sclerae normal EARS: no deformity or lesi on of external ear, canals and TM appear normal bilaterally, TM's intact, not inflamed with normal light reflex, hearing grossly normal to conversational speech NOSE: no deformity, discha rge, inflammation, or lesions MOUTH: mucous membranes jolynn st, normal oropharynx and posterior pharynx without lesions or exudates, tongue normal, dentition normal NECK: neck supple, no mass es or palpable cervical nodes, trachea midline, thyroid without nodules, masses, tenderness, or enlargement CHEST: no chest wall deform ity, no chest wall tenderness LUNGS: normal respiratory e ffort and clear to auscultation, no wheezes, rales, or rhonchi, good air exchange CARDIO: regular rate and rhy thm, normal S1 and S2, nor murmur, rub, or gallop PULSES: normal capillary ref ill ABDOMEN: soft, non-distended, non-tender, no masses RECTAL: MUSCULOSKELETAL: no deformity or scol iosis noted, normal range of motion, joints normal, no erythema, edema, effusion, or ecchymosis EXTREMITY: no clubbing, cyanosi s, edema, or deformity with normal ROM in both upper and lower bilateral extremities NEUROLOGIC: grossly normal SKIN: no rashes, ulceratio ns, or suspicious lesions LYMPH NODES: no cervical adenopat hy, nodes normal MENTAL STATUS: alert and oriented x 3, normal mood and affect
--- OUTSIDE RECORDS SUMMARY | 2024-11-26 08:16 | XMS_ITS ---
Author Organization [facility] [place] Address [address] [address] Care Team Providers Care Supervisor [employer] Name Role Phone Samm Hutchison Primary Care Provider [phone] REASON FOR VISIT HGB Problems Problem Type SNOMED Code ICD Code Onset Dates Problem Status W/U Status Risk Notes Problem Polycythemia (D75.1) Active confirmed Encounters Encounter Location Date Provider Diagnosis [facility] [address] [place] [address] 11/26/2024 Samm Hutchison Polycythemia D75.1 Assessments Encounter Date Diagnosis (ICD Code) Assessment Notes Treatment Notes Treatment Clinical Notes Section Notes 11/26/2024 Polycythemia (ICD-10 - D75.1) Plan Of Treatment Pending Test Test Name Order Date CBC W/AUTO DIFF 11/26/2024 Progress Notes * Sylvain DUBOISDOB: (54 yo M)Acc No.[id number]:11/26/2024 Patient: Дмитрий ROONEYSylvain GREEN :1970 A ge:54 Y S ex:Male Address[address], [place] [address] Subjective: * Chief Complaints: * H GB * Medical History: * Surgical History: * Hospitalization/Major Diagno stic Procedure: * Medications: Objective: * Vitals: * Physical Examination: Assessment: * Assessment: 1. P olycythemia - D75.1 (Primary) Plan: * Treatment: * Procedure Codes: * true * Date: Generated for Printi ng/Yakov/Deven on: 0 11/28/2024 03:02 PM EDT
--- OUTSIDE RECORDS SUMMARY | 2024-11-28 15:02 | XMS_ITS | Clinical Summary ---
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 Name Role Phone Gerardo Hutchison MD Primary Care Provider [phone] Allergies Active Allergy Reactions Criticality Noted Date Comments Sulfa Antibiotics Hives,Unknown 06/12/2014 Medications irbesartan (Avapro) 150 MG tablet TAKE 1 TABLET BY MOUTH EVERY DAY FOR 30 DAYS 05/25/2024 Active omeprazole (PriLOSEC) [address] capsule TAKE 1 CAPSULE BY MOUTH 30 MINUTES BEFORE MORNING MEAL EVERY DAY FOR 30 DAYS 90 DAYS 05/25/2024 Active cetirizine (ZyrTEC) 10 MG tablet TAKE 1 TABLET BY MOUTH EVERY DAY FOR 30 DAYS 10/04/2023 Active Active Problems Problem Noted Date Diagnosed Date Acute medial meniscal injury of right knee 06/27 Encounters Date Type Department Care Team Description 2024 3:05 PM EDT Office Visit [facility] [address] [facility] [address] [place] [id number] Demario Flores DO Strain of left ankle, initial encounter; Acute left ankle pain 2024 Bamboo flowsheet [facility] [address] [facility] [address] [place] [address] Demario Flores DO 2024 Travel from Last 3 Months Social History Tobacco Use Types Packs/Day Years Used Date Smoking Tobacco: Never Assessed Sex and Gender Information Value Date Recorded Sex Assigned at Not on file Legal Sex Male 7:06 PM EDT Gender Identity Not on file Sexual Orientation Not on file Last Filed Vital Signs Vital Sign Reading Time Taken Comments Blood Pressure 122/80 2024 3:32 PM EDT Pulse 80 2024 3:32 PM EDT Temperature 36.7 C (98 F) 2024 3:32 PM EDT Respiratory Rate - - Oxygen Saturation 99% 2024 3:32 PM EDT Inhaled Oxygen Concentration - - Weight 90.7 kg (200 lb) 2024 3:32 PM EDT Height - - Body Mass Index - - Plan of Treatment Not on file Insurance [employer] Care Teams Cup Machine Operator Relationship Specialty Start Date End Date Gerardo Hutchison MD PCP - General Family Medicine 07/25/24
--- OUTSIDE RECORDS SUMMARY | 2024-11-28 15:03 | XMS_ITS | Patient Health Record ---
Author Organization The 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 Name Role Phone Karuna Rodriguez Primary Care Provider [phone] KARUNA RODRIGUEZLAS Unavailable [phone] Allergies Allergen (clinical drug ingredient) Drug/Non Drug Allergy documented on EMR Reaction Allergy Type Onset Date Status lisinopril Lisinopril cough Drug Allergy Activ e Substance with sulfonamide structure and antibacterial mechanism of action (substance) Sulfa Antibiotics Unknown Drug Allergy Active Results Component Value Reference Range Notes CBC AUTO DIFF Reviewed date:02/01/2024 02:34:38 PM Interpretation: Performing Lab: Notes/Report: [facility] , White Blood Count 7.7 4.0-11.0 10 3/uL Red Blood Count 4.72 4.70-6.10 10 6/uL Hemoglobin 14.5 14.0-18.0 g/dL Hematocrit 43.0 42.0-54.0 % Mean Corpuscular Volume 91.1 80.0-94.0 fL Mean Corpuscular Hemoglobin 30.7 25.9-34.0 pg Mean Corpuscular HGB Conc 33.7 29.9-35.2 g/dL Red Cell Distribution Width 12.6 11.0-15.0 % Platelet Count 228 150-450 10 3/uL Mean Platelet Volume 9.2 9.5-13.5 fL Neutrophils Percent Auto 61.4 43.0-75.0 % Lymphocytes Percent Auto 24.2 20.5-60.0 % Monocytes Percent Auto 12.5 1.7-12.0 % Eosinophils Percent Auto 1.4 0.9-7.0 % Basophils Percent Auto 0.4 0.2-2.0 % Immature Granulocytes Pct Auto 0.1 0.0-0.5 % Neutrophils Absolute Auto 4.7 1.4-6.5 10 3/uL Lymphocytes Absolute Auto 1.9 1.2-3.8 10 3/uL Monocytes Absolute Auto 1.0 0.3-0.8 10 3/uL Eosinophils Absolute Auto 0.1 0.0-0.7 10 3/uL Basophils Absolute Auto 0.0 0.0-0.1 10 3/uL Immature Granulocytes Abs Auto 0.01 0.00-0.03 10 3/uL Performing Lab: see note ML - [facility] LB CBC AUTO DIFF Reviewed date:11/26/2024 12:18:19 PM Interpretation: Performing Lab: Notes/Report: [facility] , White Blood Count 5.7 4.0-11.0 10 3/uL Red Blood Count 6.43 4.70-6.10 10 6/uL Hemoglobin 20.2 14.0-18.0 g/dL Hematocrit 58.0 42.0-54.0 % Mean Corpuscular Volume 90.2 80.0-94.0 fL Mean Corpuscular Hemoglobin 31.4 25.9-34.0 pg Mean Corpuscular HGB Conc 34.8 29.9-35.2 g/dL Red Cell Distribution Width 13.2 11.0-15.0 % Platelet Count 241 150-450 10 3/uL Mean Platelet Volume 10.2 9.5-13.5 fL Neutrophils Percent Auto 53.4 43.0-75.0 % Lymphocytes Percent Auto 28.4 20.5-60.0 % Monocytes Percent Auto 12.5 1.7-12.0 % Eosinophils Percent Auto 4.8 0.9-7.0 % Basophils Percent Auto 0.7 0.2-2.0 % Immature Granulocytes Pct Auto 0.2 0.0-0.5 % Neutrophils Absolute Auto 3.0 1.4-6.5 10 3/uL Lymphocytes Absolute Auto 1.6 1.2-3.8 10 3/uL Monocytes Absolute Auto 0.7 0.3-0.8 10 3/uL Eosinophils Absolute Auto 0.3 0.0-0.7 10 3/uL Basophils Absolute Auto 0.0 0.0-0.1 10 3/uL Immature Granulocytes Abs Auto 0.01 0.00-0.03 10 3/uL Performing Lab: see note ML - [facility] FREE T3 Reviewed date:11/26/2024 12:18:19 PM Interpretation: Performing Lab: Notes/Report: [facility] , Free T3 3.20 2.18-3.98 pg/mL Performing Lab: see note ML - [facility] GLYCOHEMOGLOBIN A1C Reviewed date:11/26/2024 12:18:19 PM Interpretation: Performing Lab: Notes/Report: [facility] , Glycohemoglobin A1C 5.6 4.5-6.2 % ADA RECOMMENDED LIMIT 4.0 - 6.0 ADA THERAPEUTIC TARGET < 7.0 ACTION SUGGESTED > 7.0 Estimated Average Glucose 114 Performing Lab: see note - [facility] LIPID PROFILE Reviewed date:11/26/2024 12:18:19 PM Interpretation: Performing Lab: Notes/Report: [facility] , Triglycerides 149 <=150 mg/dL Cholesterol 162 <=200 mg/dL HDL Cholesterol 73 40-60 mg/dL > or =60 mg/dl - LOW CARDIOVASCULAR RISK <40 mg/dl - HIGH CARDIOVASCULAR RISK LDL Cholesterol Calculated 60.0 <100 mg/dl OPTIMAL 100-129 mg/dl NEAR OR ABOVE OPTIMAL 130-159 mg/dl BORDERLINE HIGH 160-189 mg/dl HIGH >190 mg/dl VERY HIGH VLDL CHOLESTEROL 29.8 Chol HDL Ratio 2.2 3.3 - 4.4 LOW RISK 4.4 - 7.1 AVERAGE RISK 7.1 - 11.0 MODERATE RISK >11.0 HIGH RISK Performing Lab: see note - [facility] PROF 14(COMP METB) Reviewed date:11/26/2024 12:18:19 PM Interpretation: Performing Lab: Notes/Report: [facility] , Sodium 141 136-145 mmol/L Potassium 4.2 3.5-5.1 mmol/L Chloride 104 98-107 mmol/L Carbon Dioxide 24.5 21.0-32.0 mmol/L Anion Gap 16.7 Glucose 83 74-106 mg/dL Blood Urea Nitrogen 13.0 7.0-18.0 mg/dL Creatinine 0.80 0.70-1.30 mg/dL Estimated GFR ( Sue >60 >=60 mL/min/1.73m 2 Estimated GFR (Non- Leonela >60 >=60 mL/min/1.73m 2 BUN Creatinine Ratio 16.2 Calcium 9.2 8.5-10.1 mg/dL Bilirubin Total 0.5 0.2-1.0 mg/dL Aspartate Amino Transferase 17 15-37 U/L Alanine Aminotransferase 25 16-63 U/L Alkaline Phosphatase 88 46-116 U/L Total Protein 7.0 6.4-8.2 g/dL Albumin Level 3.6 3.4-5.0 g/dL Globulin 3.4 Albumin Globulin Ratio 1.1 Performing Lab: see note ML - [facility] LB PSA SCREENING Reviewed date:11/26/2024 12:18:19 PM Interpretation: Performing Lab: Notes/Report: [facility] , Prostate Specific Antigen Scrn 0.88 <=4.00 ng/mL Performing Lab: see note - [facility] LB T4 Reviewed date:11/26/2024 12:18:19 PM Interpretation: Performing Lab: Notes/Report: [facility] , T4 Thyroxine 6.60 4.50-12.10 ug/dL Performing Lab: see note ML - [facility] LB TSH Reviewed date:11/26/2024 12:18:19 PM Interpretation: Performing Lab: Notes/Report: [facility] , Thyroid Stimulating Hormone 1.573 0.358-3.740 u IU/mL Performing Lab: see note - [facility] LB Occult Blood* Reviewed date:11/27/2024 06:40:17 PM Interpretation: Performing Lab: Notes/Report: [facility] , Occult Blood Negative Performing Lab: see note ML - [facility] LB PROF 14(COMP METB) Reviewed date:02/01/2024 02:34:38 PM Interpretation: Performing Lab: Notes/Report: [facility] , Sodium 140 136-145 mmol/L Potassium 4.3 3.5-5.1 mmol/L Chloride 103 98-107 mmol/L Carbon Dioxide 29.2 21.0-32.0 mmol/L Anion Gap 12.1 Glucose 99 74-106 mg/dL Blood Urea Nitrogen 14.0 7.0-18.0 mg/dL Creatinine 1.06 0.70-1.30 mg/dL Estimated GFR ( Sue >60 >=60 Estimated GFR (Non- Leonela >60 >=60 BUN Creatinine Ratio 13.2 Calcium 8.8 8.5-10.1 mg/dL Bilirubin Total 0.5 0.2-1.0 mg/dL Aspartate Amino Transferase 27 15-37 U/L Alanine Aminotransferase 50 16-63 U/L Alkaline Phosphatase 67 46-116 U/L Total Protein 6.8 6.4-8.2 g/dL Albumin Level 3.3 3.4-5.0 g/dL Globulin 3.5 Albumin Globulin Ratio 0.9 Performing Lab: see note ML - [facility] LB MAGNESIUM Reviewed date:02/01/2024 02:34:38 PM Interpretation: Performing Lab: Notes/Report: [facility] , Magnesium 2.1 1.8-2.4 mg/dL Performing Lab: see note ML - [facility] LB Reason For Referral No Information Medications Medication SIG (Take, Route, Fr equency, [...] Question Answer Notes Patient is a nonsmoker Alcohol Screen (Audit-C) Question Answer Notes Did you have a drink containing alcohol in the p ast year? No Points 0 Interpretation Negative AUDIT-C (Standard) Question Answer Notes Did you have a drink containing alcohol in the p ast year? No Points 0 Interpretation Negative Problems Problem Type SNOMED Code ICD Code Onset Dates Problem Status W/U Status Risk Notes Problem Well adult (512100770) Well adult (Z00.00) Active confirmed Problem Plantar fasciitis (528655925) Plantar fasciitis (M72.2) Active confirmed Problem Contact dermatitis (95631548) Contact dermatitis (L25.9) Active confirmed Problem Muscle spasm (74310486) Muscle spasm (M62.838) Active confirmed Problem Polycythemia (193228743) Polycythemia (D75.1) Active confirmed Vital Signs Blood pressure diastolic 80 mm Hg 11/22/2024 Height 68 in 11/22/2024 Blood pressure systolic 132 mm Hg 11/22/2024 Weight 199 lbs 11/22/2024 BMI 30.25 kg/m2 11/22/2024 Encounters Encounter Location Date Provider Diagnosis [facility] [address] [place] [address] 01/06/2024 Karuna Rodriguez Contact dermatitis L25.9 [facility] [address] [place] [address] 02/01/2024 Karuna Rodriguez Muscle spasm M62.838 [facility] [address] [place] [address] 11/22/2024 Karuna Rodriguez Well adult Z00.00 an d Plantar fasciitis M72.2 [facility] [address] [place] [address] 10/11/2024 Karuna Rodriguez [facility] [address] [place] [address] 11/20/2024 Karuna Rodriguez [facility] [address] [place] [address] 11/26/2024 Karuna Rodriguez Polycythemia D75.1 [facility] [address] [facility] [place] [address] 11/29/2023 MOSES RODRIGUEZ [facility] [address] [facility] [place] [address] 02/01/2024 Karuna Rodriguez [facility] [address] [facility] [place] [address] 02/09/2024 Karuna Rodriguez [facility] [address] [facility] [place] [address] 06/12/2024 Karuna Rodriguez [facility] [address] [facility] [place] [address] 09/15/2024 Karuna cher [facility] [address] [facility] [place] [address] 09/26/2024 Karuna Rodriguez Assessments Encounter Date Diagnosis (ICD Code) Assessment Notes Treatment Notes Treatment Clinical Notes Section Notes 01/06/2024 Contact dermatitis (ICD-10 - L25.9) 02/01/2024 Muscle spasm (ICD-10 - M62.838) 11/22/2024 Well adult (ICD-10 - Z00.00) 11/22/2024 Plantar fasciitis (ICD-10 - M72.2) 11/26/2024 Polycythemia (ICD-10 - D75.1) Plan Of Treatment Pending Test Test Name Order Date CMP (COMPLETE METABOLIC PANEL) CMP (COMPLETE METABOLIC PANEL) 4 HEMOGLOBIN A1C (GLYCO) 07/07/2023 HEMOGLOBIN A1C (GLYCO) 11/22/2024 LIPID PANEL (CHOL/TRIG/HDL/LDL) 11/23/19 LIPID PANEL (CHOL/TRIG/HDL/LDL) 07/07/19 CBC WITH DIFF 07/07/2023 CBC WITH DIFF 02/01/2024 PSA, PROSTATE-SPECIFIC ANTIGEN 4 CBC W/AUTO DIFF 11/26/2024 STOOL OCCULT BLOOD 07/07/2023 STOOL OCCULT BLOOD 11/22/2024 THYROID PANEL (T4/TSH/FREE T3) 5 PSA, SCREENING 11/22/2024 CMP (COMP MET QUINONES) w/eGFR CKD-EPI 2024 CBC WITH DIFF 11/22/2024 Insurance Providers Payer Name Payer Address Payer Phone Subscriber Number Group Number Insured Name Patient Relationship to Insured Coverage Start Date Coverage End Date MMO [employer] [address] [place] [address] [id number] Sylvain Mcdonough Self - patient is the insured Medications Administered Medication Instructions Date of Administration Dosage Notes Kenalog-40 01/06/2024 80 mg Medical (General) History Medical History History ICD Code Anxiety F41.9 Essential hypertension I10 GERD (gastroesophageal reflux disease) K 21.9 Insomnia G47.00 Surgical History Surgery Date(Month/Year) Plate and Seven screws in right ankle Meniscectomy lateral
[2024-11-28 15:12] LABS: Basophils Percent Auto 0.5 % (0.2-2.0); Eosinophils Absolute Auto 0.2 10^3/uL (0.0-0.7); Eosinophils Percent Auto 2.2 % (0.9-7.0); Hematocrit 55.2 % (42.0-54.0); Immature Granulocytes Abs Auto 0.01 10^3/uL (0.00-0.03); Immature Granulocytes Pct Auto 0.1 % (0.0-0.5); Lymphocytes Absolute Auto 2.1 10^3/uL (1.2-3.8); Lymphocytes Percent Auto 25.7 % (20.5-60.0); Mean Corpuscular HGB Conc 34.4 g/dL (29.9-35.2); Mean Corpuscular Hemoglobin 30.9 pg (25.9-34.0); Mean Corpuscular Volume 89.9 fL (80.0-94.0); Mean Platelet Volume 9.7 fL (9.5-13.5); Monocytes Absolute Auto 0.9 10^3/uL (0.3-0.8); Monocytes Percent Auto 11.5 % (1.7-12.0); Neutrophils Absolute Auto 4.9 10^3/uL (1.4-6.5); Platelet Count 206 10^3/uL (150-450); Red Blood Count 6.14 10^6/uL (4.70-6.10); Red Cell Distribution Width 13.2 % (11.0-15.0); White Blood Count 8.1 10^3/uL (4.0-11.0)
== END 2024-11-28 15:01 | disposition home or self-care (01) ==
LOC: LAB 15:00
PROVIDERS: PCP Family Medicine; Visit Provider Family Medicine
DX: D75.1 Secondary polycythemia (principal)
CPT/HCPCS: 36415; 85025

== ENCOUNTER 2024-12-20 14:45 | Outpatient (RCR) | payer OTHER, SELFPAY ==
[2024-12-20 15:09] LABS: Hematocrit 55.7 % (42.0-54.0); Hemoglobin 19.1 g/dL (14.0-18.0); Mean Corpuscular HGB Conc 34.3 g/dL (29.9-35.2); Mean Corpuscular Hemoglobin 30.3 pg (25.9-34.0); Mean Corpuscular Volume 88.4 fL (80.0-94.0); Platelet Count 222 10^3/uL (150-450); Red Blood Count 6.30 10^6/uL (4.70-6.10); White Blood Count 7.9 10^3/uL (4.0-11.0)
[2024-12-20 15:29] LABS: Basophils Abs Manual 0.00 10^3/uL (0.00-0.10); Basophils Percent Manual 0.0 % (0.2-2.0); Eosinophils Absolute Manual 0.15 10^3/uL (0.00-0.70); Eosinophils Percent Manual 2.0 % (0.9-7.0); Lymphocytes Absolute Manual 1.50 10^3/uL (1.20-3.80); Lymphocytes Percent Manual 19.0 % (20.5-60.0); Monocytes Absolute Manual 1.42 10^3/uL (0.30-0.80); Monocytes Percent Manual 18.0 % (1.7-12.0); Segmented Neut Absolute Manual 4.81 10^3/uL (1.4-6.5); Segmented Neutrophils % Manual 61.0 (43.0-75.0)
[2024-12-20 15:32] LABS: Iron 80.0 ug/dL (65.0-175.0); Percent Iron Saturation 27.6 %; Total Iron Binding Capacity 290.0 ug/dL (250.0-450.0)
[2024-12-20 15:42] LABS: Ferritin 116.0 ng/mL (26.0-388.0)
[2024-12-21 15:08] LABS: Erythropoietin (EPO), Serum 2.2 mIU/mL (2.6-18.5)
== END 2025-01-11 23:59 | disposition home or self-care (01) ==
LOC: HEMC 14:45
PROVIDERS: PCP Family Medicine; Visit Provider Internal Medicine Hematology & Oncology
DX: D75.1 Secondary polycythemia (principal); F17.200 Nicotine dependence, unspecified, uncomplicated; J43.9 Emphysema, unspecified
CPT/HCPCS: 36415; 82668; 82728; 83540; 83550; 83615; 85007; 85027; 85652; 86140; G0463

== ENCOUNTER 2025-01-30 14:43 | Outpatient (OUT) | payer OTHER, SELFPAY ==
[2025-01-30 15:13] LABS: Hemoglobin 16.7 g/dL (14.0-18.0)
--- NOTE | 2025-01-30 15:19 | RESP.RT ---
Hgb drawn on this date. PFT rescheduled at this time due to patient currently taking antibiotics for possible pneumonia/allergy flare up.
--- OUTSIDE RECORDS SUMMARY | 2025-01-30 15:55 | XMS_ITS | CCD ---
Author Organization [facility] Care Team Providers Care Sales Support Rep Name Role Phone DR MOSES HUTCHISON Consulting Unavailable JENNIFER, DR LOPES Primary Care Unavailable REQUEST, NONE LISTED Attending Jonela ble REQUEST, NONE LISTED Admitting Unavaila ABDIFATAH Bowden Attending Unavailable ABDIFATAH GREENE Consulting Unavailable ABDIFATAH GREENE Admitting Unavailable Moses Hutchison MD Primary Care Provider [phone] KIM RIVERA Attending Unavailable KIM RIVERA Referring [...] CAM Boot size M given to pt [employer] XR ANKLE 3+ VIEWS LEFTon XR [...] signed and approved by the interpreting Radiologist. [facility] [employer] Radiology Study observation (narrative) [facility] [employer] XR Ankle - left 3 ViewsOrder ed By: Norbert Sarkar on 07-25-2024 [facility] Work Phone: CBC AUTO DIFFon 07-30-2022 BASO # 0.0 103/ul Normal 0.0-0.1 [facility] Comment on above: Performed By: #### D ATCBC #### [facility] [address] [place] [address] Dr. Juan Richards Basophils/100 WBC (Bld) 0.4 % Normal 0.2-2.0 [facility] Comment on above: Performed By: #### D ATCBC #### [facility] [address] [place] [address] Dr. Juan Richards EO # 0.2 103/ul Normal 0.0-0.7 [facility] Comment on above: Performed By: #### D ATCBC #### [facility] [address] [place] [address] Dr. Juan Richards Eosinophils/100 WBC (Bld) 2.1 % Normal 0.9-7.0 [facility] Comment on above: Performed By: #### D ATCBC #### [facility] [address] [place] [address] Dr. Juan Richards Erythrocyte distribution width (RBC) [Ratio] 13.6 % Normal 11.0-15.0 [facility] Comment on above: Performed By: #### D ATCBC #### [facility] [address] [place] [address] Dr. Juan Richards Hematocrit (Bld) [Volume fraction] 42.3 % Normal 42.0-54.0 [facility] Comment on above: Performed By: #### D ATCBC #### [facility] [address] [address] [address] Juan Richards Hemoglobin (Bld) [Mass/Vol] 14.5 g/dL Normal 14.0-18.0 [facility] Comment on above: Performed By: #### D ATCBC #### [facility] [address] [place] [address] Dr. Juan Richards IG # 0.03 10e3/ul Normal 0.00-0.03 [facility] Comment on above: Performed By: #### D ATCBC #### [facility] [address] [place] [address] Dr. Juan Richards IG % 0.4 % Normal 0.0-0.5 [facility] Comment on above: Performed By: #### D ATCBC #### [facility] [address] [place] [address] Dr. Juan Richards LYMPH # 2.3 103/ul Normal 1.2-3.8 [facility] Comment on above: Performed By: #### D ATCBC #### [facility] [address] [place] [address] Dr. Juan Richards Lymphocytes/100 WBC (Bld) 27.8 % Normal 20.5-60.0 [facility] Comment on above: Performed By: #### D ATCBC #### [facility] [address] [place] [address] Dr. Juan Richards MCH (RBC) [Entitic mass] 30.7 pg Normal 25.9-34.0 [facility] Comment on above: Performed By: #### D ATCBC #### [facility] [address] [place] [address] Dr. Juan Richards MCHC (RBC) [Mass/Vol] 34.3 g/dL Normal 29.9-35.2 [facility] Comment on above: Performed By: #### D ATCBC #### [facility] [address] [address] [address] Juan Richards MCV (RBC) [Entitic vol] 89.6 fL Normal 80.0-94.0 [facility] Comment on above: Performed By: #### D ATCBC #### [facility] [address] [address] [address] Juan Richards MONO # 0.9 103/ul Critically high 0.3-0.8 [facility] Comment on above: Performed By: #### D ATCBC #### [facility] [address] [address] [address] Juan Richards Monocytes/100 WBC (Bld) 11.4 % Normal 1.7-12.0 [facility] Comment on above: Performed By: #### D ATCBC #### [facility] [address] [place] [address] Dr. Juan Richards NEUT # 4.7 103/ul Normal 1.4-6.5 [facility] Comment on above: Performed By: #### D ATCBC #### [facility] [address] [place] [address] Dr. Juan Richards Neutrophils/100 WBC (Bld) 57.9 % Normal 43.0-75.0 [facility] Comment on above: Performed By: #### D ATCBC #### [facility] [address] [place] [address] Dr. Juan Richards Platelet mean volume (Bld) [Entitic vol] 9.4 fL Critically low 9.5-13.5 [facility] Comment on above: Performed By: #### D ATCBC #### [facility] [address] [place] [address] Dr. Juan Richards PLT 323 103/ul Normal 150-450 [facility] Comment on above: Performed By: #### D ATCBC #### [facility] [address] [place] [address] Dr. Juan Richards RBC 4.72 106/ul Normal 4.70-6.10 [facility] Comment on above: Performed By: #### D ATCBC #### [facility] [address] [address] [address] Juan Richards WBC 8.2 103/ul Normal 4.0-11.0 [facility] Comment on above: Performed By: #### D ATCBC #### [facility] [address] [place] [address] Dr. Juan Richards KAMALJIT- BMP WITH LIPIDon 2022 Anion gap [Moles/Vol] 12.3 mmol/L Normal [facility] Comment on above: Performed By: #### D ATBMP, DATPSA #### [facility] [address] [place] [address] Dr. Juan Richards Calcium [Mass/Vol] 9.2 mg/dL Normal 8.5-10.1 [facility] Comment on above: Performed By: #### D ATBMP, DATPSA #### [facility] [address] [place] [address] Dr. Juan Richards Chloride [Moles/Vol] 102 mmol/L Normal 98-107 [facility] Comment on above: Performed By: #### D ATBMP, DATPSA #### [facility] [address] [place] [address] Dr. Juan Richards Cholesterol [Mass/Vol] 217 mg/dL Critically high <=200 [facility] Comment on above: Performed By: #### D ATBMP, DATPSA #### [facility] [address] [place] [address] Dr. Juan Richards Cholesterol in HDL [Mass/Vol] 67 mg/dL Critically high 40-60 [facility] Comment on above: Performed By: #### D ATBMP, DATPSA #### [facility] [address] [place] [address] Dr. Juan Richards Cholesterol in LDL [Mass/Vol] 137.8 mg/dL Normal [facility] Comment on above: Performed By: #### D ATBMP, DATPSA #### [facility] [address] [place] [address] Dr. Juan Richards CO2 [Moles/Vol] 28.6 mmol/L Normal 21.0-32.0 [facility] Comment on above: Performed By: #### D ATBMP, DATPSA #### [facility] [address] [address] [address] Juan Richards Creatinine [Mass/Vol] 0.92 mg/dL Normal 0.70-1.30 [facility] Comment on above: Performed By: #### D ATBMP, DATPSA #### [facility] [address] [address] [address] Juan Richards EGFR-AF LATVIAN >60 Normal >=60 [facility] Comment on above: Performed By: #### D ATBMP, DATPSA #### [facility] [address] [address] [address] Juan Richards EGFR-NON AF LATVIAN >60 Normal >=60 [facility] Comment on above: Performed By: #### D ATBMP, DATPSA #### [facility] [address] [address] [address] Juan Richards Glucose [Mass/Vol] 94 mg/dL Normal 74-106 [facility] Comment on above: Performed By: #### D ATBMP, DATPSA #### [facility] [address] [address] [address] Juan Richards HDL NORMAL > or = 60 mg/dl - LO W CARDIOVASCULAR RISK <40 mg/dl - HIGH CARDIOVASCULAR RISK Normal [facility] Comment on above: Performed By: #### D ATBMP, DATPSA #### [facility] [address] [address] [address] Juan Richards LDL CALC NORMAL SEE BELOW Normal [facility] Comment on above: Result Comment: <100 mg/dl OPTIMAL 100 - 129 mg/dl NEAR OR ABOVE OPTIMAL 130 - 159 mg/dl BORDERLINE HIGH 160 - 189 mg/dl HIGH >190 mg/dl VERY HIGH Performed By: #### D ATBMP, DATPSA #### [facility] [address] [address] [address] Juan Richards Potassium [Moles/Vol] 3.9 mmol/L Normal 3.5-5.1 [facility] Comment on above: Performed By: #### D ATBMP, DATPSA #### [facility] [address] [place] [address] Dr. Juan Richards Sodium [Moles/Vol] 139 mmol/L Normal 136-145 [facility] Comment on above: Performed By: #### D ATBMP, DATPSA #### [facility] [address] [place] [address] Dr. Juan Richards Triglyceride [Mass/Vol] 61 mg/dL Normal <=150 [facility] Comment on above: Performed By: #### D ATBMP, DATPSA #### [facility] [address] [place] [address] Dr. Juan Richards Urea nitrogen [Mass/Vol] 18.0 mg/dL Normal 7.0-18.0 [facility] Comment on above: Performed By: #### D ATBMP, DATPSA #### [facility] [address] [place] [address] Dr. Juan Richards Urea nitrogen/Creatinine [Mass ratio] 19.6 mg/mg Normal [facility] Comment on above: Performed By: #### D ATP, DATPSA #### [facility] [address] [place] [address] Dr. Juan Richards VLDL CALC 12.2 mg/dL Normal [facility] Comment on above: Performed By: #### D ATBMP, DATPSA #### [facility] [address] [place] [address] Dr. Juan Richards Covid-19 PCR (CVDTB)on SARS-CoV-2 (COVID-19) RNA DAMION+probe Ql (Unsp spec) Detected Abnormal NOT DETECTED [facility] Comment on above: Result Comment: This test is not yet approved or cleared by the [place] FDA. When there are no FDA-approved or cleared tests available, and other criteria are met, FDA can make tests available under an emergency access mechanism called an Emergency Use Authorization (EUA). The EUA for this test is supported by the Enroller of Health and Human Service's declaration that [...] used). Performed By: #### C VDTB #### [facility] [address] [place] [address] Dr. Juan Richards INFLUENZA A AND B AGon 06-22 [facility] SEE BELOW Normal [facility] Comment on above: Result Comment: Nega tive for Flu A protein angiten. Infection due to Flu A cannot be ruled out. Flu A angiten in the sample may be below the detection limit of the test. Performed By: #### I NFLUAB #### [facility] [address] [place] [address] [facility] SEE BELOW Normal [facility] Comment on above: Result Comment: Nega tive for Flu B protein antigen. Infection due to Flu B cannot be ruled out. Flu B antigen in the sample may be below the detection limit of the test. Performed By: #### I NFLUAB #### [facility] [address] [place] [address] Dr. Juan Richards INFLUENZA A AG Negative Normal NEGATIVE SEE COMMENT [facility] Comment on above: Performed By: #### I NFLUAB #### [facility] [address] [place] [address] Dr. Juan Richards INFLUENZA B AG Negative Normal NEGATIVE SEE COMMENT [facility] Comment on above: Performed By: #### I NFLUAB #### [facility] [address] [place] [address] Dr. Juan Richards Vital Signs Date Time Vital Sign Value Performing Clinician Faci lity 2024 15:32-0400 Body temperature 98.01 [degF] Joel Flores DO Work Phone: [facility] 2024 15:32-0400 Body weight 90.72 kg Joel Flores DO Work Phone: [facility] 2024 15:32-0400 Diastolic blood pressure 80 mm[Hg] Joel Flores DO Work Phone: [facility] 2024 15:32-0400 Heart rate 80 /min Joel Flores DO Work Phone: [facility] 2024 15:32-0400 SaO2% (BldA) [Mass fraction] 99 % Joel Flores DO Work Phone: [facility] 2024 15:32-0400 Systolic blood pressure 122 mm[Hg] Joel Flores DO Work Phone: [facility] 08-16-2024 14:31-0500 Body temperature 97.11 [degF] Joel Flores DO Work Phone: [facility] 08-16-2024 14:31-0500 Body weight 90.72 kg Joel Flores DO Work Phone: [facility] 08-16-2024 14:31-0500 Diastolic blood pressure 80 mm[Hg] Joel Flores DO Work Phone: [facility] 08-16-2024 14:31-0500 Heart rate 71 /min Joel Flores DO Work Phone: [facility] 08-16-2024 14:31-0500 SaO2% (BldA) [Mass fraction] 97 % Joel Flores DO Work Phone: [facility] 08-16-2024 14:31-0500 Systolic blood pressure 128 mm[Hg] Joel Flores DO Work Phone: [facility] 08-02-2024 16:04-0500 Body temperature 98.01 [degF] Joel Flores DO Work Phone: [facility] 08-02-2024 16:04-0500 Body weight 90.72 kg Joel Flores DO Work Phone: [facility] 08-02-2024 16:04-0500 Diastolic blood pressure 80 mm[Hg] Joel Flores DO Work Phone: [facility] 08-02-2024 16:04-0500 Heart rate 74 /min Joel Flores DO Work Phone: [facility] 08-02-2024 16:04-0500 SaO2% (BldA) [Mass fraction] 98 % Joel Flores DO Work Phone: [facility] 08-02-2024 16:04-0500 Systolic blood pressure 112 mm[Hg] Joel Crewsconsuelo DO Work Phone: [facility] 07-25-2024 13:02-0500 Body temperature 97 [degF] Kim Rivera ORTHOPHOTOGRAPHY TECHNICIAN Work Phone: [facility] 07-25-2024 13:02-0500 Body weight 90.72 kg Kim Rivera ORTHOPHOTOGRAPHY TECHNICIAN Work Phone: [facility] 07-25-2024 13:02-0500 Diastolic blood pressure 80 mm[Hg] Kim Rivera ORTHOPHOTOGRAPHY TECHNICIAN Work Phone: [facility] 07-25-2024 13:02-0500 Heart rate 91 /min Kim Rivera ORTHOPHOTOGRAPHY TECHNICIAN Work Phone: [facility] 07-25-2024 13:02-0500 SaO2% (BldA) [Mass fraction] 96 % Kim Rivera ORTHOPHOTOGRAPHY TECHNICIAN Work Phone: [facility] 07-25-2024 13:02-0500 Systolic blood pressure 136 mm[Hg] Kim Rivera ORTHOPHOTOGRAPHY TECHNICIAN Work Phone: [facility] Healthcare Encounters Encounter Date Encounter Type Care Provider Facility Start: 2024 End: 2024 ambulatory JOEL FLORES Not Available Start: 2024 End: 2024 Office outpatient visit 15 minutes Joel Flores DO Work Phone: [facility] Comment on above: Strain of left ankle , initial encounter; Acute left ankle pain Start: 2024 End: 2024 Bamboo flowsheet Joel Flores DO Work Phone: [facility] Start: 2024 End: 2024 Bamboo flowsheet Joel Flores DO Work Phone: [facility] Start: 08-23-2024 End: 08-23-2024 ambulatory JOEL FLORES Not Available Start: 08-21-2024 End: 08-21-2024 ambulatory JOEL FLORES Not Available Start: 08-16-2024 End: 08-16-2024 ambulatory JOEL FLORES Not Available Start: 08-16-2024 End: 08-16-2024 Office outpatient visit 25 minutes Joel Flores DO Work Phone: [facility] Comment on above: Strain of left ankle , initial encounter (Primary Dx) Start: 08-16-2024 End: 08-16-2024 Bamboo flowsheet Joel Flores DO Work Phone: [facility] Start: 08-16-2024 End: 08-16-2024 Bamboo flowsheet Joel Flores DO Work Phone: [facility] Start: 08-02-2024 End: 08-02-2024 Office outpatient visit 25 minutes Joel Flores DO Work Phone: [facility] Comment on above: Strain of left ankle , initial encounter; Acute left ankle pain Start: 08-02-2024 End: 08-02-2024 ambulatory JOEL FLORES Not Available Start: 07-25-2024 End: 07-25-2024 ambulatory KIM RIVERA Not Available Start: 07-25-2024 End: 07-25-2024 Office outpatient new 45 minutes Kim Rivera ORTHOPHOTOGRAPHY TECHNICIAN Work Phone: [facility] Comment on above: Strain of left ankle , initial encounter (Primary Dx); Acute left ankle pain Start: 07-30-2022 End: 07-31-[address] MOSES HUTCHISON Facility:[facility] Start: 06-22-2022 End: 06-22-2022 ambulatory ABDIFATAH GREENE Facility:[facility] Procedures Date Procedure Procedure Detail Performing Clinician Start: 08-02-2024 Strapping ankle &/foot Kusum Chambers MA Start: 07-25-2024 Radex ankle complete minimum 3 views Kim Rivera ORTHOPHOTOGRAPHY TECHNICIAN Work Phone: Start: 07-30-[address] DANNA HUTCHISON Comment on above: Performed By: #### D ATBM, DATPSA #### [facility] [address] [place], [place] [address] Dr. Juan Richards Plan of Treatment Date Care Activity Detail Author Start: 08-16-2024 End: 08-16-2024 Patient encounter procedure 08/16/2024 4:00 PM EST Office Visit [facility] [address] [place] [address] [facility] Start: 08-02-2024 End: 08-02-2024 Patient encounter procedure 08/02/2024 6:00 PM EST Office Visit [facility] [address] [place] [address] [facility] Payers Date Payer Category Payer Worker's Compensation 1.2.84 [id number] 2024 Worker's Compensation [id number] 1970 Unknown [id number] 2.16.84 [id number] 1970 Unknown [id number] 2.16.84 [id number] 1970 Unknown [id number] 2.16.84 [id number] 1970 Unknown [id number] 2.16.84 [id number] 1970 Unknown [id number] 2.16.84 [id number] 1970 Unknown [id number] 2.16.84 [id number] 1970 Unknown [id number] 2.16.84 [id number] 1970 Unknown [id number] 2.16.84 [id number] 1970 Unknown [id number] 2.16.84 [id number] 1970 Unknown [id number] 2.16.84 [id number] 1960 Self-pay 1960 Unknown [id number] Unknown [id number] 2.16.84 [id number] Social History Date Type Detail [facility] Start: [...] male Pt presents today 2024 for a [facility] follow up visit - ASUNCION: Roula Fontaine . DOI: 05/15/2024 . 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 FROM Sonido's neg. Smamie's neg. Extremities: no clubbing, cyanosis Peripheral Pulses: [...] illness Narrative Pt presents today for a [facility] follow up visit - ASUNCION: Roula Fontaine. [...] [] [x] Decreased ROM [x] [] Trauma [facility] Additional Comments: pt has not taken any [...] male Pt presents today 08/02/2024 for a [facility] follow up visit for left ankle/foot injury- ASUNCION: Roula Fontaine . DOI: 05/15/2024 . 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 Case discussed with Christen from [employer] [facility]. 2. Acute left ankle pain Dx [...] illness Narrative Pt presents today for a [facility] initial visit - ASUNCION: Roula Fontaine. DOI: 05/15/2024 . 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 Pt states that while working they I [...] 3+ views left documented in this encounter [facility] Healthcare Evaluation note Note Date & Type Note Facility Evaluation note Diagnosis Strain of left ankle, initial encounter- Primary Acute left ankle pain documented in this encounter [facility] Healthcare Evaluation note Note Date & Type Note Facility Evaluation note Diagnosis Strain of left ankle, initial encounter Acute left ankle pain documented in this encounter [facility] Healthcare Evaluation note Note Date & Type Note Facility Evaluation note Diagnosis Strain of left ankle, initial encounter- Primary documented in this encounter [facility] Healthcare Evaluation note Note Date & Type Note Facility Evaluation note Diagnosis Strain of left ankle, initial encounter Acute left ankle pain documented in this encounter [facility] Summary Purpose Family History No Family History Records FoundNo Family History Records Found Advance Directives No Advanced Directives Records FoundNo Advanced Directives Records Found Additional Source Comments (unrecognized sect ion and content) No Status Records FoundNo Status Records Found INFORMATION SOURCE (unrecogn ized section and content) DATE CREATED AUTHOR 07/31/2022 [facility] DATE CREATED AUTHOR 'S ORGANIZ ATION 09/07/2024 [facility] [employer] Care Teams (unrecognized sec tion and content) Sales Support Rep Relationship Specialty Start Date End Date Moses Hutchison MD [address] [place] [address] PCP - General Family Medicine 07/25/24 Sales Support Rep Relationship Specialty Start Date End Date Moses Hutchison MD [address] [place] [facility] [place] [address] PCP - General Family Medicine 07/25/24 Sales Support Rep Relationship Specialty Start Date End Date Moses Hutchison MD [address] [place] [facility] [place] [address] PCP - General Family Medicine 07/25/24 Sales Support Rep Relationship Specialty Start Date End Date Moess Hutchison MD [address] [phone] PCP - General Family Medicine 07/25/24 Sales Support Rep Relationship Specialty Start Date End Date Moses Hutchison MD [address] [place] [address] PCP - General Family Medicine 07/25/24 Sales Support Rep Relationship Specialty Start Date End Date Moses Hutchison MD [address] [place] [address] PCP - General Family Medicine 07/25/24 FOR [...] BE BASED ON THE PRIMARY CLINICAL RECORDS. [facility]. provides no warranty or guarantee of the accuracy or completeness of information in this document.
== END 2025-01-30 14:44 | disposition home or self-care (01) ==
LOC: CARD 14:43
PROVIDERS: PCP Family Medicine; Visit Provider Internal Medicine Hematology & Oncology
DX: D45 Polycythemia vera (principal)
CPT/HCPCS: 36415; 85018

== ENCOUNTER 2025-02-06 11:32 | Outpatient (RCR) | payer OTHER, SELFPAY ==
[2025-02-06 15:20] LABS: Hematocrit 47.3 % (42.0-54.0); Hemoglobin 16.5 g/dL (14.0-18.0); Immature Granulocytes Abs Auto 0.00 10^3/uL (0.00-0.03); Immature Granulocytes Pct Auto 0.0 % (0.0-0.5); Lymphocytes Absolute Auto 1.8 10^3/uL (1.2-3.8); Mean Corpuscular HGB Conc 34.9 g/dL (29.9-35.2); Mean Corpuscular Hemoglobin 31.5 pg (25.9-34.0); Mean Corpuscular Volume 90.4 fL (80.0-94.0); Platelet Count 265 10^3/uL (150-450); Red Blood Count 5.23 10^6/uL (4.70-6.10); White Blood Count 6.5 10^3/uL (4.0-11.0)
[2025-02-06 15:34] LABS: Anion Gap 12.9; Blood Urea Nitrogen 13.0 mg/dL (7.0-18.0); Calcium 9.0 mg/dL (8.5-10.1); Carbon Dioxide 27.1 mmol/L (21.0-32.0); Chloride 103 mmol/L (98-107); Estimated GFR (African America >60 (>=60 mL/min/1.73m^2); Estimated GFR (Non-African Ame >60 (>=60 mL/min/1.73m^2); Glucose 98 mg/dL (74-106); Potassium 4.0 mmol/L (3.5-5.1); Sodium 139 mmol/L (136-145)
[2025-02-06 16:05] LABS: Iron 130.0 ug/dL (65.0-175.0); Percent Iron Saturation 45.8 %; Total Iron Binding Capacity 284.0 ug/dL (250.0-450.0)
[2025-02-06 16:19] LABS: Ferritin 189.0 ng/mL (26.0-388.0)
== END 2025-02-11 23:59 | disposition home or self-care (01) ==
LOC: HEMC 11:32
PROVIDERS: PCP Family Medicine; Visit Provider Internal Medicine Hematology & Oncology
DX: D75.1 Secondary polycythemia (principal); D45 Polycythemia vera; F17.290 Nicotine dependence, other tobacco product, uncomplicated
CPT/HCPCS: 36415; 80048; 82728; 83540; 83550; 85025; G0463

== ENCOUNTER 2025-02-21 14:55 | Outpatient (OUT) | payer OTHER, SELFPAY ==
--- OUTSIDE RECORDS SUMMARY | 2024-12-19 10:45 | XMS_ITS ---
Author Organization The [facility] in [place] Address [address] [place] [address] Care Team Providers Care Education Director Name Role Phone Samm Hutchison Primary Care Provider [phone] Starr Rome Unavailable [phone] REASON FOR VISIT MD New PT Hem Encounters Encounter Location Date Provider Diagnosis [facility] [address] [place] [address] 12/19/2024 Starr Rome Plan Of Treatment Next Appt Details Provider Name:Starr Rome , 04/03/2025 03:00:00 PM, [address] [place], [address], Progress Notes * Sylvain DUBOISDOB: (54 yo M)Acc No.[id number]:12/19/2024 UNLOCKED PROGRESS NOTE Progress Notes Patient: Дмитрий ALMARAZNICOLAS Sylvain Wei Provider: Bryan Rome M.D. :1970 A ge:54 Y S ex:Male Date:12/19/2024 Address:[address], [place], [place] Pcp:Samm Hutchison Subjective: * Chief Complaints: * 1 . New PT Hem. * Medical History: Objective: * Vitals: Assessment: Plan: * Treatment: * * Electronic signature of Evelio Rome MD, [id number] on 02/21/2025 at 02:58 PM EDT Sign off status: Pending Visit Status: C ANC (Cancelled) * Provider: Bryan Rome M.D. Date: 0 12/19/2024 Generated for Shaheen mishra/Yakov/Deven on: 0 02/21/2025 02:58 PM EDT
--- OUTSIDE RECORDS SUMMARY | 2024-12-19 11:00 | XMS_ITS ---
Author Organization The [facility] in [place] Address [address] [address] Care Team Providers Care Automatic Washer Mechanic Name Role Phone Samm Hutchison Primary Care Provider [phone] Starr Roem Unavailable [phone] REASON FOR VISIT MD New PT Hem Encounters Encounter Location Date Provider Diagnosis [facility] [address] [place] [address] 12/19/2024 Starr Rome Plan Of Treatment Next Appt Details Provider Name:Starr Rome , 04/03/2025 03:00:00 PM, [address] [place], [address], Progress Notes * Sylvain DUBOISDOB: (54 yo M)Acc No.[id number]:12/19/2024 UNLOCKED PROGRESS NOTE Progress Notes Patient: Дмитрий ALMARAZNICOLAS Sylvain Wei Provider: Bryan Rome M.D. :1970 A ge:54 Y S ex:Male Date:12/19/2024 Address:[address], [place], [place] Pcp:Samm Hutchison Subjective: * Chief Complaints: * 1 . New PT Hem. * Medical History: Objective: * Vitals: Assessment: Plan: * Treatment: * * Electronic signature of Evelio Rome MD, [id number] on 02/21/2025 at 02:57 PM EDT Sign off status: Pending Visit Status: Jameson MCKNIGHT (Voice) * Provider: Bryan Rome M.D. Date: 0 12/19/2024 Generated for Shaheen mishra/Yakov/Deven on: 0 02/21/2025 02:57 PM EDT
--- OUTSIDE RECORDS SUMMARY | 2025-01-16 11:15 | XMS_ITS ---
Author Organization The [facility] in [place] Address [address] [place] [address] Care Team Providers Care Door Opener Name Role Phone Samm Hutchison Primary Care Provider Starr Rome Unavailable [phone] REASON FOR VISIT MD Encounters Encounter Location Date Provider Diagnosis [facility] [address] [place] [address] 01/16/2025 Starr Roem Plan Of Treatment Next Appt Details Provider Name:Starr Rome , 04/03/2025 03:00:00 PM, [address] [place] [address], [address], Progress Notes * Sylvain DUBOISDOB: (54 yo M)Acc No.[id number]:01/16/2025 UNLOCKED PROGRESS NOTE Progress Notes Patient: Дмитрий AARONSylvain BANERJEE Provider: Bryan Rome M.D. :1970 A ge:54 Y S ex:Male Date:01/16/2025 Address:[address], [place] Pcp:Samm Hutchison Subjective: * Chief Complaints: * 1 . MD. * Medical History: Objective: * Vitals: Assessment: Plan: * Treatment: * * Electronic signature of Evelio Rome MD, [id number] on 02/21/2025 at 02:58 PM EDT Sign off status: Pending Visit Status: Jameson MCKNIGHT (Voice) * Provider: Bryan Rome M.D. Date: 0 01/16/2025 Generated for Shaheen mishra/Yakov/Deven on: 0 02/21/2025 02:58 PM EDT
--- OUTSIDE RECORDS SUMMARY | 2025-01-29 10:50 | XMS_ITS ---
Author Organization The [facility] in [place] Address [address] [address] Care Team Providers Care Educational Consultant Name Role Phone Samm Hutchison Primary Care Provider REASON FOR VISIT not feeling well Medications Medication SIG (Take, Route, Fr equency, Duration) Notes Start Date End Date Status Cefdinir 300 MG 2 capsule Orally onc e a day for 10 days 01/29/2025 Active Encounters Encounter Location Date Provider Diagnosis [facility] [address] [place] [address] 01/29/2025 Samm Hutchison Plan Of Treatment Medication Medication Name Sig Start Date Stop Date Notes Cefdinir 300 MG 2 capsule Orally once a day for 10 days Next Appt Details Provider Name:Starr Rome , 04/03/2025 03:00:00 PM, [address] [place], [address], Progress Notes * Sylvain DUBOISDOB: (54 yo M)Acc No.[id number]:01/29/2025 Patient: Дмитрий Sylvain SO :1970 A ge:54 Y S ex:Male Address:[address], [place] [address] * Refills Start Cefdinir Capsule, 300 MG, Orally, 20 Capsule, 2 capsule, once a day, 10 days, Refills=0 * true * Date: Generated for Shaheen mishra/Yakov/Deven on: 0 02/21/2025 02:57 PM EDT
--- OUTSIDE RECORDS SUMMARY | 2025-02-06 11:15 | XMS_ITS ---
Author Organization [facility] in [place] Address [address] [place] [address] Care Team Providers Care Mine Environmental Engineer Name Role Phone Samm Hutchison Primary Care Provider Starr Rome Unavailable [phone] REASON FOR VISIT MD Encounters Encounter Location Date Provider Diagnosis [facility] [address] [place] [phone] 02/06/2025 Starr Rome Plan Of Treatment Next Appt Details Provider Name:Starr Rome , 04/03/2025 03:00:00 PM, [address] [place] [address], [phone], Progress Notes * Sylvain DUBOISDOB: (54 yo M)Acc No.[id number]:02/06/2025 UNLOCKED PROGRESS NOTE Progress Notes Patient: Дмитрий AARONSylvain BANERJEE Provider: Bryan Rome M.D. :1970 A ge:54 Y S ex:Male Date:02/06/2025 Address:[address], [place] Pcp:Samm Hutchison Subjective: * Chief Complaints: * 1 . MD. * Medical History: Objective: * Vitals: Assessment: Plan: * Treatment: * * Electronic signature of Evelio Rome MD, [phone] on 02/21/2025 at 02:57 PM EDT Sign off status: Pending Visit Status: Jameson MCKNIGHT (Voice) * Provider: Bryan Rome M.D. Date: 0 02/06/2025 Generated for Shaheen mishra/Yakov/Deven on: 0 02/21/2025 02:57 PM EDT
--- OUTSIDE RECORDS SUMMARY | 2025-02-21 14:57 | XMS_ITS | Clinical Summary ---
Author Organization [facility] Address [address] [place] [address] Care Team Providers Care Electrical Worker Name Role Phone Gerardo Hutchison MD Primary [...] medial meniscal injury of right knee 06/27 Social History Tobacco Use Types Packs/Day Years [...] file Insurance [employer] Care Teams Electrical Worker Relationship Specialty Start Date End Date Gerardo Hutchison MD PCP - General Family Medicine 07/25/24
--- OUTSIDE RECORDS SUMMARY | 2025-02-21 14:57 | XMS_ITS | Clinical Summary ---
Author Organization [facility] Address [address] [place] [address], [address] [place] [address] Care Team Providers Care Senior Informatica Developer Name Role Phone Gerardo Hutchison MD Primary Care Provider [phone] Allergies Active Allergy Reactions Criticality Noted Date Comments Sulfa Antibiotics Hives 06/12/2014 Medications aspirin 325 MG EC tablet Take 1 tablet by mouth daily. 06/27/2014 Active Active Problems Problem Noted Date Diagnosed Date Acute medial meniscal injury of right knee 06/27 Social History Tobacco Use Types Packs/Day Years Used Date Smoking Tobacco: Never Smokeless Tobacco: Current Alcohol Use Standard Drinks/Week Comments No 0 (1 standard drink = 0.6 oz pur e alcohol) Sex and Gender Information Value Date Recorded Sex Assigned at Not on file Legal Sex Male 3:31 PM EST Gender Identity Not on file Sexual Orientation Not on file Last Filed Vital Signs Vital Sign Reading Time Taken Comments Blood Pressure 115/76 06/27/2014 2:33 PM EST Pulse 55 06/27/2014 2:33 PM EST Temperature 36.4 C (97.6 F) 06/27/2014 1:40 PM EST Respiratory Rate 16 06/27/2014 2:33 PM EST Oxygen Saturation 98% 06/27/2014 1:34 PM EST Inhaled Oxygen Concentration - - Weight 87.5 kg (193 lb) 06/27/2014 10:19 AM EST Height 172.7 cm (5' 8 ) 06/27/2014 10:19 AM EST Body Mass Index 29.35 06/27/2014 10:19 AM EST Plan of Treatment Not on file Advance Directives * Full Code (Latest Code Status on File) Date Activated Date Inactivated Comments 06/27/2014 12:54 PM 06/27/2014 5:08 PM * Full Code Date Activated Date Inactivated Comments 06/27/2014 10:19 AM 06/27/2014 12:54 PM Care Teams Senior Informatica Developer Relationship Specialty Start Date End Date Gerardo Hutchison MD [address] [place] [address] PCP - General 06/12/14
--- OUTSIDE RECORDS SUMMARY | 2025-02-21 14:59 | XMS_ITS | Patient Health Record ---
Author Organization [facility] in [place] Address [address] [place] [address] Care Team Providers Care Diabetes Physician Name Role Phone Samm Hutchison Primary Care Provider Starr Rome Unavailable [phone] Allergies Allergen (clinical drug ingredient) Drug/Non Drug Allergy documented on EMR Reaction Allergy Type Onset Date Status lisinopril Lisinopril cough Drug Allergy Activ e Substance with sulfonamide structure and antibacterial mechanism of action (substance) Sulfa Antibiotics Unknown Drug Allergy Active Results Component Value Reference Range Notes CBC AUTO DIFF Reviewed date:11/26/2024 12:18:19 PM Interpretation: Performing Lab: Notes/Report: [facility] , White Blood Count 5.7 [...] 3/uL Performing Lab: see note ML - [facility] FREE T3 Reviewed date:11/26/2024 12:18:19 PM Interpretation: Performing Lab: Notes/Report: [facility] , Free T3 3.20 2.18-3.98 pg/mL Performing Lab: see note ML - [facility] GLYCOHEMOGLOBIN A1C Reviewed date:11/26/2024 12:18:19 PM Interpretation: Performing Lab: Notes/Report: [facility] , Glycohemoglobin A1C 5.6 4.5-6.2 % ADA RECOMMENDED LIMIT 4.0 - 6.0 ADA THERAPEUTIC TARGET < 7.0 ACTION SUGGESTED > 7.0 Estimated Average Glucose 114 Performing Lab: see note ML - [facility] LB LIPID PROFILE Reviewed date:11/26/2024 12:18:19 PM Interpretation: Performing Lab: Notes/Report: [facility] , Triglycerides 149 <=150 mg/dL [...] >11.0 HIGH RISK Performing Lab: see note ML - [facility] LB PROF 14(COMP METB) Reviewed date:11/26/2024 12:18:19 PM Interpretation: Performing Lab: Notes/Report: [facility] , Sodium 141 136-145 mmol/L [...] 1.1 Performing Lab: see note ML - [facility] PSA SCREENING Reviewed date:11/26/2024 12:18:19 PM Interpretation: Performing Lab: Notes/Report: [facility] , Prostate Specific Antigen Scrn 0.88 <=4.00 ng/mL Performing Lab: see note ML - [facility] LB T4 Reviewed date:11/26/2024 12:18:19 PM Interpretation: Performing Lab: Notes/Report: [facility] , T4 Thyroxine 6.60 4.50-12.10 ug/dL Performing Lab: see note ML - [facility] LB TSH Reviewed date:11/26/2024 12:18:19 PM Interpretation: Performing Lab: Notes/Report: [facility] , Thyroid Stimulating Hormone 1.573 0.358-3.740 u IU/mL Performing Lab: see note - [facility] LB HEMOGLOBIN (Not yet reviewed by provider) Interpretation: Performing Lab: Notes/Report: [facility] , Hemoglobin 16.7 14.0-18.0 g/dL Performing Lab: see note - [facility] LB CBC AUTO DIFF (Not yet revie wed by provider) Interpretation: Performing Lab: Notes/Report: [facility] , White Blood Count 6.5 4.0-11.0 10 3/uL Red Blood Count 5.23 4.70-6.10 10 6/uL Hemoglobin 16.5 14.0-18.0 g/dL Hematocrit 47.3 42.0-54.0 % Mean Corpuscular Volume 90.4 80.0-94.0 fL Mean Corpuscular Hemoglobin 31.5 25.9-34.0 pg Mean Corpuscular HGB Conc 34.9 29.9-35.2 g/dL Red Cell Distribution Width 15.2 11.0-15.0 % Platelet Count 265 150-450 10 3/uL Mean Platelet Volume 9.7 9.5-13.5 fL Neutrophils Percent Auto 57.4 43.0-75.0 % Lymphocytes Percent Auto 27.4 20.5-60.0 % Monocytes Percent Auto 12.4 1.7-12.0 % Eosinophils Percent Auto 2.3 0.9-7.0 % Basophils Percent Auto 0.5 0.2-2.0 % Immature Granulocytes Pct Auto 0.0 0.0-0.5 % Neutrophils Absolute Auto 3.7 1.4-6.5 10 3/uL Lymphocytes Absolute Auto 1.8 1.2-3.8 10 3/uL Monocytes Absolute Auto 0.8 0.3-0.8 10 3/uL Eosinophils Absolute Auto 0.2 0.0-0.7 10 3/uL Basophils Absolute Auto 0.0 0.0-0.1 10 3/uL Immature Granulocytes Abs Auto 0.00 0.00-0.03 10 3/uL Performing Lab: see note ML - [facility] LB FERRITIN (Not yet reviewed b y provider) Interpretation: Performing Lab: Notes/Report: [facility] , Ferritin 189.0 26.0-388.0 ng/mL Performing Lab: see note ML - [facility] LB IRON AND TIBC (Not yet revie wed by provider) Interpretation: Performing Lab: Notes/Report: [facility] , Iron 130.0 65.0-175.0 ug/dL Total Iron Binding Capacity 284.0 250.0-450.0 u g/dL Percent Iron Saturation 45.8 Performing Lab: see note ML - [facility] LB PROF CHEM 8 (BAS METB) (Not yet reviewed by provider) Interpretation: Performing Lab: Notes/Report: [facility] , Sodium 139 136-145 mmol/L Potassium 4.0 3.5-5.1 mmol/L Chloride 103 98-107 mmol/L Carbon Dioxide 27.1 21.0-32.0 mmol/L Anion Gap 12.9 Glucose 98 74-106 mg/dL Blood Urea Nitrogen 13.0 7.0-18.0 mg/dL Creatinine 0.78 0.70-1.30 mg/dL Estimated GFR ( Sue >60 >=60 mL/min/1.73m 2 Estimated GFR (Non- Leonela >60 >=60 mL/min/1.73m 2 BUN Creatinine Ratio 16.7 Calcium 9.0 8.5-10.1 mg/dL Performing Lab: see note ML - [facility] LB Erythropoietin (EPO), Serum (Not yet reviewed by provider) Interpretation: Performing Lab: Notes/Report: [facility] , Erythropoietin (EPO), Serum 2.2 2.6-18.5 mIU/ mL Slicethepieel DxI 800 Immunoassay System Values obtained with different assay methods or kits cannot be used interchangeably. Results cannot be interpreted as absolute evidence of the presence or absence of malignant disease. Performed at: [address] [id number] Car Dropper: Bruno Leon PhD, Phone: [phone] Performing Lab: see note - [facility] LB Manual Differential (Not yet reviewed by provider) Interpretation: Performing Lab: Notes/Report: [facility] , Segmented Neutrophils % Manual 61.0 43.0-75.0 Lymphocytes Percent Manual 19.0 20.5-60.0 % Monocytes Percent Manual 18.0 1.7-12.0 % Eosinophils Percent Manual 2.0 0.9-7.0 % Basophils Percent Manual 0.0 0.2-2.0 % Segmented Neut Absolute Manual 4.81 1.4-6.5 10 3/uL Lymphocytes Absolute Manual 1.50 1.20-3.80 10 3/uL Monocytes Absolute Manual 1.42 0.30-0.80 10 3/ uL Eosinophils Absolute Manual 0.15 0.00-0.70 10 3/uL Basophils Abs Manual 0.00 0.00-0.10 10 3/uL Performing Lab: see note ML - [facility] LB IRON AND TIBC (Not yet revie wed by provider) Interpretation: Performing Lab: Notes/Report: [facility] , Iron 80.0 65.0-175.0 ug/dL Total Iron Binding Capacity 290.0 250.0-450.0 u g/dL Percent Iron Saturation 27.6 Performing Lab: see note ML - [facility] LB FERRITIN (Not yet reviewed b y provider) Interpretation: Performing Lab: Notes/Report: [facility] , Ferritin 116.0 26.0-388.0 ng/mL Performing Lab: see note ML - [facility] LB CBC AUTO DIFF (Not yet revie wed by provider) Interpretation: Performing Lab: Notes/Report: [facility] , White Blood Count 7.9 4.0-11.0 10 3/uL Red Blood Count 6.30 4.70-6.10 10 6/uL Hemoglobin 19.1 14.0-18.0 g/dL Hematocrit 55.7 42.0-54.0 % Mean Corpuscular Volume 88.4 80.0-94.0 fL Mean Corpuscular Hemoglobin 30.3 25.9-34.0 pg Mean Corpuscular HGB Conc 34.3 29.9-35.2 g/dL Red Cell Distribution Width 13.4 11.0-15.0 % Platelet Count 222 150-450 10 3/uL Mean Platelet Volume 9.9 9.5-13.5 fL Performing Lab: see note ML - [facility] LB CBC AUTO DIFF Reviewed date:11/28/2024 04:40:29 PM Interpretation: Performing Lab: Notes/Report: [facility] , White Blood Count 8.1 4.0-11.0 10 3/uL Red Blood Count 6.14 4.70-6.10 10 6/uL Hemoglobin 19.0 14.0-18.0 g/dL Hematocrit 55.2 42.0-54.0 % Mean Corpuscular Volume 89.9 80.0-94.0 fL Mean Corpuscular Hemoglobin 30.9 25.9-34.0 pg Mean Corpuscular HGB Conc 34.4 29.9-35.2 g/dL Red Cell Distribution Width 13.2 11.0-15.0 % Platelet Count 206 150-450 10 3/uL Mean Platelet Volume 9.7 9.5-13.5 fL Neutrophils Percent Auto 60.0 43.0-75.0 % Lymphocytes Percent Auto 25.7 20.5-60.0 % Monocytes Percent Auto 11.5 1.7-12.0 % Eosinophils Percent Auto 2.2 0.9-7.0 % Basophils Percent Auto 0.5 0.2-2.0 % Immature Granulocytes Pct Auto 0.1 0.0-0.5 % Neutrophils Absolute Auto 4.9 1.4-6.5 10 3/uL Lymphocytes Absolute Auto 2.1 1.2-3.8 10 3/uL Monocytes Absolute Auto 0.9 0.3-0.8 10 3/uL Eosinophils Absolute Auto 0.2 0.0-0.7 10 3/uL Basophils Absolute Auto 0.0 0.0-0.1 10 3/uL Immature Granulocytes Abs Auto 0.01 0.00-0.03 10 3/uL Performing Lab: see note ML - [facility] LB Occult Blood* Reviewed date:11/27/2024 06:40:17 PM Interpretation: Performing Lab: Notes/Report: [facility] , Occult Blood Negative Performing Lab: see note ML - [facility] LB Erythrocyte Sedimentation Ra te (Not yet reviewed by provider) Interpretation: Performing Lab: Notes/Report: [facility] , Erythrocyte Sedimentation Rate 9 <=20 mm/hr Performing Lab: see note ML - [facility] LB LDH (Not yet reviewed by pro vider) Interpretation: Performing Lab: Notes/Report: [facility] , Lactate Dehydrogenase 190 85-227 U/L Performing Lab: see note ML - [facility] LB CRP (Not yet reviewed by pro vider) Interpretation: Performing Lab: Notes/Report: [facility] , C Reactive Protein 0.73 <=0.50 mg/dL Performing Lab: see note ML - [facility] LB Reason For Referral Diagnosis 1 Polycythemia (D75.1) Referral Organization [facility] Referring Provider First Name Samm Referring Provider Last Name Foster Referring Provider Speciality [facility] Referred Organization [facility] Referred Provider Starr Rome Referred Address [address],[place], [place],[address],[place] Referred Provider Specialty Hematology/O ncology Referral Priority Routine Medications Medication SIG (Take, Route, Fr equency, Duration) Notes Start Date End Date Status Cetirizine HCl 10 MG 1 tablet Orally Onc e a day for 30 days 09/26/2024 Active Meloxicam 15 MG 1 tablet Orally Once a day for 30 days 11/22/2024 Active Omeprazole 20 MG 1 capsule 1/2 to 1 h our before morning meal Orally Once a day for 30 days 09/15/2024 Active Irbesartan 150 MG TAKE 1 TABLET BY HILL TH EVERY DAY FOR 30 DAYS for 30 Active Cefdinir 300 MG 2 capsule Orally onc e a day for 10 days 01/29/2025 Active Social History Tobacco Use: Social History [...] W/U Status Risk Notes Problem Well adult (535172776) Well adult (Z00.00) Active confirmed Problem Plantar fasciitis (268017220) Plantar fasciitis (M72.2) Active confirmed Problem Contact dermatitis (27658281) Contact dermatitis (L25.9) Active confirmed Problem Muscle spasm (50206665) Muscle spasm (M62.838) Active confirmed Problem Polycythemia (065181095) Polycythemia (D75.1) Active confirmed Vital Signs Blood pressure diastolic 80 mm Hg 11/22/2024 Height 68 in 11/22/2024 Blood pressure systolic 132 mm Hg 11/22/2024 Weight 199 lbs 11/22/2024 BMI 30.25 kg/m2 11/22/2024 Encounters Encounter Location Date Provider Diagnosis [facility] [address] [place] [address] 06/12/2024 Samm Hutchison [facility] [address] [place] [facility] [place] [address] 09/15/2024 Samm Hutchison [facility] [address] [place] [facility] [place] [address] 09/26/2024 Samm Hutchison [facility] [address] [place] [facility] [place] [address] 10/11/2024 Samm Hutchison [facility] [address] [place] [place] [address] 11/20/2024 Samm Hutchison [facility] [address] [place] [place] [address] 11/26/2024 Samm Hutchison Polycythemia D75.1 [facility] [address] [place] [place] [address] 11/28/2024 Samm Hutchison Polycythemia D75.1 [facility] [address] [place] [place] [address] 01/29/2025 Samm Hutchison [facility] [address] [place] [place] [address] 11/22/2024 Samm Hutchison Well adult Z00.00 an d Plantar fasciitis M72.2 [facility] [address] [place] [place] [address] 12/19/2024 [facility] [address] [place] [place] [address] 01/16/2025 [facility] [address] [place] [place] [address] 02/06/2025 [facility] Assessments Encounter Date Diagnosis (ICD Code) Assessment Notes Treatment Notes Treatment Clinical Notes Section Notes 11/22/2024 Well adult (ICD-10 - Z00.00) 11/22/2024 Plantar fasciitis (ICD-10 - M72.2) 11/26/2024 Polycythemia (ICD-10 - D75.1) 11/28/2024 Polycythemia (ICD-10 - D75.1) Plan Of Treatment Pending Test Test Name Order Date CMP (COMPLETE METABOLIC PANEL) 4 CMP (COMPLETE METABOLIC PANEL) 4 HEMOGLOBIN A1C (GLYCO) 11/22/2024 HEMOGLOBIN A1C (GLYCO) 07/07/2023 LIPID PANEL (CHOL/TRIG/HDL/LDL) 07/07/19 LIPID PANEL (CHOL/TRIG/HDL/LDL) 11/23/19 25 CBC WITH DIFF 07/07/2023 CBC WITH DIFF 02/01/2024 PSA, PROSTATE-SPECIFIC ANTIGEN 4 CBC W/AUTO DIFF 11/26/2024 STOOL OCCULT BLOOD 11/22/2024 STOOL OCCULT BLOOD 07/07/2023 CBC AUTO DIFF 02/06/2025 CBC AUTO DIFF 12/20/2024 CRP 12/20/2024 FERRITIN 12/20/2024 FERRITIN 02/06/2025 HEMOGLOBIN 01/30/2025 IRON AND TIBC 02/06/2025 IRON AND TIBC 12/20/2024 LDH 12/20/2024 PROF CHEM 8 (BAS METB) 02/06/2025 THYROID PANEL (T4/TSH/FREE T3) Erythrocyte Sedimentation Rate 5 Manual Differential 12/20/2024 PSA, SCREENING 11/22/2024 Erythropoietin (EPO), Serum 12/20/2024 CMP (COMP MET QUINONES) w/eGFR CKD-EPI 2024 CBC WITH DIFF 11/22/2024 Next Appt Details Provider Name:Starr Rome , 04/03/2025 03:00:00 PM, [address] [place], [address], Insurance Providers Payer Name Payer Address Payer Phone Subscriber Number Group Number Insured Name Patient Relationship to Insured Coverage Start Date Coverage End Date MMO [employer] [address] [place] [address] [id number] Sylvain Mcdonough Self - patient is the insured Medications Administered Medication Instructions Date of Administration Dosage Notes Kenalog-40 01/06/2024 80 mg Medical (General) History Medical History History ICD Code Anxiety F41.9 Essential hypertension I10 GERD (gastroesophageal reflux disease) K 21.9 Insomnia G47.00 Surgical History Surgery Date(Month/Year) Plate and Seven screws in right ankle Meniscectomy lateral
--- NOTE | 2025-02-21 15:43 | XR_ITS ---
The [address] [address] Patient Name: JOHN BOSCH MRN: [id number] date: 1970 Sex: M Assigned Patient Location: CARD Current Patient Location: CARD Accession/Order Number: [id number] Exam Date: 02/21/2025 15:44 Report Date: 02/21/2025 15:58 At the request of: TRUNG SHAW MD Procedure: XR chest 2V Chest 2 views CLINICAL HISTORY: Wheezing, Polycythemia COMPARISON: None FINDINGS: Heart normal size. Lungs are clear. No free air. XR/XR chest 2V IMPRESSION: NO ACUTE CARDIOPULMONARY ABNORMALITY. Impression dictated by: Ceci Phillips Jr.OChristal 02/21/2025 3:58 PM Dictation Location: [place] [address] Electronically authenticated by: [id number] Y Date: 02/21/2025 15:58
--- OUTSIDE RECORDS SUMMARY | 2025-02-21 16:51 | XMS_ITS | CCD ---
Author Organization [facility] Care Team Providers Care Lathe Puller Name Role Phone DR MOSES HUTCHISON Consulting Unavailable JENNIFER, DR LOPES Primary Care Unavailable REQUEST, NONE LISTED Attending Jonela ble REQUEST, NONE LISTED Admitting Unavaila ABDIFATAH Bowden Attending Unavailable ABDIFATAH GREENE Consulting Unavailable ABDIFATAH GREENE Admitting Unavailable Moses Hutchison MD Primary Care Provider [phone] KIM RIVERA Attending Unavailable KIM RIVERA Referring [...] CAM Boot size M given to pt [employer] XR ANKLE 3+ VIEWS LEFTon XR [...] signed and approved by the interpreting Radiologist. [facility] (formerly [facility]) Radiology Study observation (narrative) [facility] (formerly [facility]) XR Ankle - left 3 ViewsOrder ed By: Norbert Sarkar on 07-25-2024 [facility] Work Phone: CBC AUTO DIFFon 07-30-2022 BASO # 0.0 103/ul Normal 0.0-0.1 [facility] Comment on above: Performed By: #### D ATCBC #### [facility] [address] [place] [address] Dr. Juan Richards Basophils/100 WBC (Bld) 0.4 % Normal 0.2-2.0 [facility] Comment on above: Performed By: #### D ATCBC #### [facility] [address] [place] [address] Dr. Juan Richards EO # 0.2 103/ul Normal 0.0-0.7 [facility] Comment on above: Performed By: #### D ATCBC #### [facility] [address] [place] [address] Dr. Juan Richards Eosinophils/100 WBC (Bld) 2.1 % Normal 0.9-7.0 [facility] Comment on above: Performed By: #### D ATCBC #### [facility] [address] [place] [address] Dr. Juan Richards Erythrocyte distribution width (RBC) [Ratio] 13.6 % Normal 11.0-15.0 [facility] Comment on above: Performed By: #### D ATCBC #### [facility] [address] [place] [address] Dr. Juan Richards Hematocrit (Bld) [Volume fraction] 42.3 % Normal 42.0-54.0 [facility] Comment on above: Performed By: #### D ATCBC #### [facility] [address] [address] [address] Juan Richards Hemoglobin (Bld) [Mass/Vol] 14.5 g/dL Normal 14.0-18.0 [facility] Comment on above: Performed By: #### D ATCBC #### [facility] [address] [place] [address] Dr. Juan Richards IG # 0.03 10e3/ul Normal 0.00-0.03 [facility] Comment on above: Performed By: #### D ATCBC #### [facility] [address] [place] [address] Dr. Juan Richards IG % 0.4 % Normal 0.0-0.5 [facility] Comment on above: Performed By: #### D ATCBC #### [facility] [address] [place] [address] Dr. Juan Richards LYMPH # 2.3 103/ul Normal 1.2-3.8 [facility] Comment on above: Performed By: #### D ATCBC #### [facility] [address] [place] [address] Dr. Juan Richards Lymphocytes/100 WBC (Bld) 27.8 % Normal 20.5-60.0 [facility] Comment on above: Performed By: #### D ATCBC #### [facility] [address] [place] [address] Dr. Juan Richards MCH (RBC) [Entitic mass] 30.7 pg Normal 25.9-34.0 [facility] Comment on above: Performed By: #### D ATCBC #### [facility] [address] [place] [address] Dr. Juan Richards MCHC (RBC) [Mass/Vol] 34.3 g/dL Normal 29.9-35.2 [facility] Comment on above: Performed By: #### D ATCBC #### [facility] [address] [address] [address] Juan Richards MCV (RBC) [Entitic vol] 89.6 fL Normal 80.0-94.0 [facility] Comment on above: Performed By: #### D ATCBC #### [facility] [address] [address] [address] Juan Richards MONO # 0.9 103/ul Critically high 0.3-0.8 [facility] Comment on above: Performed By: #### D ATCBC #### [facility] [address] [address] [address] Juan Richards Monocytes/100 WBC (Bld) 11.4 % Normal 1.7-12.0 [facility] Comment on above: Performed By: #### D ATCBC #### [facility] [address] [place] [address] Dr. Juan Richards NEUT # 4.7 103/ul Normal 1.4-6.5 [facility] Comment on above: Performed By: #### D ATCBC #### [facility] [address] [place] [address] Dr. Juan Richards Neutrophils/100 WBC (Bld) 57.9 % Normal 43.0-75.0 [facility] Comment on above: Performed By: #### D ATCBC #### [facility] [address] [place] [address] Dr. Juan Richards Platelet mean volume (Bld) [Entitic vol] 9.4 fL Critically low 9.5-13.5 [facility] Comment on above: Performed By: #### D ATCBC #### [facility] [address] [place] [address] Dr. Juan Richards PLT 323 103/ul Normal 150-450 [facility] Comment on above: Performed By: #### D ATCBC #### [facility] [address] [place] [address] Dr. Juan Richards RBC 4.72 106/ul Normal 4.70-6.10 [facility] Comment on above: Performed By: #### D ATCBC #### [facility] [address] [address] [address] Juan Richards WBC 8.2 103/ul Normal 4.0-11.0 [facility] Comment on above: Performed By: #### D ATCBC #### [facility] [address] [place] [address] Dr. Juan Richards KAMALJIT- BMP WITH LIPIDon 2022 Anion gap [Moles/Vol] 12.3 mmol/L Normal [facility] Comment on above: Performed By: #### D ATBMP, DATPSA #### [facility] [address] [place] [address] Dr. Juan Richards Calcium [Mass/Vol] 9.2 mg/dL Normal 8.5-10.1 [facility] Comment on above: Performed By: #### D ATBMP, DATPSA #### [facility] [address] [place] [address] Dr. Juan Richards Chloride [Moles/Vol] 102 mmol/L Normal 98-107 [facility] Comment on above: Performed By: #### D ATBMP, DATPSA #### [facility] [address] [place] [address] Dr. Juan Richards Cholesterol [Mass/Vol] 217 mg/dL Critically high <=200 [facility] Comment on above: Performed By: #### D ATBMP, DATPSA #### [facility] [address] [place] [address] Dr. Juan Richards Cholesterol in HDL [Mass/Vol] 67 mg/dL Critically high 40-60 [facility] Comment on above: Performed By: #### D ATBMP, DATPSA #### [facility] [address] [place] [address] Dr. Juan Richards Cholesterol in LDL [Mass/Vol] 137.8 mg/dL Normal [facility] Comment on above: Performed By: #### D ATBMP, DATPSA #### [facility] [address] [place] [address] Dr. Juan Richards CO2 [Moles/Vol] 28.6 mmol/L Normal 21.0-32.0 [facility] Comment on above: Performed By: #### D ATBMP, DATPSA #### [facility] [address] [address] [address] Juan Richards Creatinine [Mass/Vol] 0.92 mg/dL Normal 0.70-1.30 [facility] Comment on above: Performed By: #### D ATBMP, DATPSA #### [facility] [address] [address] [address] Juan Richards EGFR-AF ENGLISH >60 Normal >=60 [facility] Comment on above: Performed By: #### D ATBMP, DATPSA #### [facility] [address] [address] [address] Juan Richards EGFR-NON AF ENGLISH >60 Normal >=60 [facility] Comment on above: Performed By: #### D ATBMP, DATPSA #### [facility] [address] [address] [address] Juan Richards Glucose [Mass/Vol] 94 mg/dL Normal 74-106 [facility] Comment on above: Performed By: #### D ATBMP, DATPSA #### [facility] [address] [address] [address] Juan Richards HDL NORMAL > or = 60 mg/dl - LO W CARDIOVASCULAR RISK <40 mg/dl - HIGH CARDIOVASCULAR RISK Normal [facility] Comment on above: Performed By: #### D ATBMP, DATPSA #### [facility] [address] [address] [address] Juan Richards LDL CALC NORMAL SEE BELOW Normal [facility] Comment on above: Result Comment: <100 mg/dl OPTIMAL 100 - 129 mg/dl NEAR OR ABOVE OPTIMAL 130 - 159 mg/dl BORDERLINE HIGH 160 - 189 mg/dl HIGH >190 mg/dl VERY HIGH Performed By: #### D ATBMP, DATPSA #### [facility] [address] [address] [address] Juan Richards Potassium [Moles/Vol] 3.9 mmol/L Normal 3.5-5.1 [facility] Comment on above: Performed By: #### D ATBMP, DATPSA #### [facility] [address] [place] [address] Dr. Juan Richards Sodium [Moles/Vol] 139 mmol/L Normal 136-145 [facility] Comment on above: Performed By: #### D ATBMP, DATPSA #### [facility] [address] [place] [address] Dr. Juan Richards Triglyceride [Mass/Vol] 61 mg/dL Normal <=150 [facility] Comment on above: Performed By: #### D ATBMP, DATPSA #### [facility] [address] [place] [address] Dr. Juan Richards Urea nitrogen [Mass/Vol] 18.0 mg/dL Normal 7.0-18.0 [facility] Comment on above: Performed By: #### D ATBMP, DATPSA #### [facility] [address] [place] [address] Dr. Juan Richards Urea nitrogen/Creatinine [Mass ratio] 19.6 mg/mg Normal [facility] Comment on above: Performed By: #### D ATP, DATPSA #### [facility] [address] [place] [address] Dr. Juan Richards VLDL CALC 12.2 mg/dL Normal [facility] Comment on above: Performed By: #### D ATBMP, DATPSA #### [facility] [address] [place] [address] Dr. Juan Richards Covid-19 PCR (CVDTB)on SARS-CoV-2 (COVID-19) RNA DAMION+probe Ql (Unsp spec) Detected Abnormal NOT DETECTED [facility] Comment on above: Result Comment: This test is not yet approved or cleared by the [place] FDA. When there are no FDA-approved or cleared tests available, and other criteria are met, FDA can make tests available under an emergency access mechanism called an Emergency Use Authorization (EUA). The EUA for this test is supported by the [employer] of Health and Human Service's declaration that [...] used). Performed By: #### C VDTB #### [facility] [address] [place] [address] Dr. Juan Richards INFLUENZA A AND B AGon 06-22 [facility] SEE BELOW Normal [facility] Comment on above: Result Comment: Nega tive for Flu A protein angiten. Infection due to Flu A cannot be ruled out. Flu A angiten in the sample may be below the detection limit of the test. Performed By: #### I NFLUAB #### [facility] [address] [place] [address] Dr. Juan Richards [facility] SEE BELOW Normal [facility] Comment on above: Result Comment: Nega tive for Flu B protein antigen. Infection due to Flu B cannot be ruled out. Flu B antigen in the sample may be below the detection limit of the test. Performed By: #### I NFLUAB #### [facility] [address] [place] [address] Dr. Juan Richards INFLUENZA A AG Negative Normal NEGATIVE SEE COMMENT [facility] Comment on above: Performed By: #### I NFLUAB #### [facility] [address] [place] [address] Dr. Juan Richards INFLUENZA B AG Negative Normal NEGATIVE SEE COMMENT [facility] Comment on above: Performed By: #### I NFLUAB #### [facility] [address] [place] [address] Dr. Juan Richards Vital Signs Date Time Vital Sign Value Performing Clinician Faci lity 2024 15:32-0400 Body temperature 98.01 [degF] Joel Flores DO Work Phone: [facility] 2024 15:32-0400 Body weight 90.72 kg Joel Flores DO Work Phone: [facility] 2024 15:32-0400 Diastolic blood pressure 80 mm[Hg] Joel Flores DO Work Phone: [facility] 2024 15:32-0400 Heart rate 80 /min Joel Flores DO Work Phone: [facility] 2024 15:32-0400 SaO2% (BldA) [Mass fraction] 99 % Joel Flores DO Work Phone: [facility] 2024 15:32-0400 Systolic blood pressure 122 mm[Hg] Joel Flores DO Work Phone: [facility] 08-16-2024 14:31-0500 Body temperature 97.11 [degF] Joel Flores DO Work Phone: [facility] 08-16-2024 14:31-0500 Body weight 90.72 kg Joel Flores DO Work Phone: [facility] 08-16-2024 14:31-0500 Diastolic blood pressure 80 mm[Hg] Joel Flores DO Work Phone: [facility] 08-16-2024 14:31-0500 Heart rate 71 /min Joel Flores DO Work Phone: [facility] 08-16-2024 14:31-0500 SaO2% (BldA) [Mass fraction] 97 % Joel Flores DO Work Phone: [facility] 08-16-2024 14:31-0500 Systolic blood pressure 128 mm[Hg] Joel Flores DO Work Phone: [facility] 08-02-2024 16:04-0500 Body temperature 98.01 [degF] Joel Flores DO Work Phone: [facility] 08-02-2024 16:04-0500 Body weight 90.72 kg Joel Flores DO Work Phone: [facility] 08-02-2024 16:04-0500 Diastolic blood pressure 80 mm[Hg] Joel Flores DO Work Phone: [facility] 08-02-2024 16:04-0500 Heart rate 74 /min Joel Flores DO Work Phone: [facility] 08-02-2024 16:04-0500 SaO2% (BldA) [Mass fraction] 98 % Joel Flores DO Work Phone: [facility] 08-02-2024 16:04-0500 Systolic blood pressure 112 mm[Hg] Joel Crewsconsuelo DO Work Phone: [facility] 07-25-2024 13:02-0500 Body temperature 97 [degF] Kim Rivera MATERIAL REPROCESSING ASSOCIATE Work Phone: [facility] 07-25-2024 13:02-0500 Body weight 90.72 kg Kim Rivera MATERIAL REPROCESSING ASSOCIATE Work Phone: [facility] 07-25-2024 13:02-0500 Diastolic blood pressure 80 mm[Hg] Kim Rivera MATERIAL REPROCESSING ASSOCIATE Work Phone: [facility] 07-25-2024 13:02-0500 Heart rate 91 /min Kim Rivera MATERIAL REPROCESSING ASSOCIATE Work Phone: [facility] 07-25-2024 13:02-0500 SaO2% (BldA) [Mass fraction] 96 % Kim Rivera MATERIAL REPROCESSING ASSOCIATE Work Phone: [facility] 07-25-2024 13:02-0500 Systolic blood pressure 136 mm[Hg] Kim Rivera MATERIAL REPROCESSING ASSOCIATE Work Phone: [facility] Healthcare Encounters Encounter Date Encounter Type Care Provider Facility Start: 2024 End: 2024 ambulatory JEOL FLORES Not Available Start: 2024 End: 2024 Office outpatient visit 15 minutes Joel Flores DO Work Phone: [facility] Comment on above: Strain of left ankle , initial encounter; Acute left ankle pain Start: 2024 End: 2024 Bamboo flowsheet Jole Flores DO Work Phone: [facility] Start: 2024 End: 2024 Bamboo flowsheet Joel Flores DO Work Phone: [facility] Start: 08-23-2024 End: 08-23-2024 ambulatory JOEL FLORES Not Available Start: 08-21-2024 End: 08-21-2024 ambulatory JOEL FLORES Not Available Start: 08-16-2024 End: 08-16-2024 ambulatory JOEL FLORES Not Available Start: 08-16-2024 End: 08-16-2024 Office outpatient visit 25 minutes Joel Flores DO Work Phone: [facility] Comment on above: Strain of left ankle , initial encounter (Primary Dx) Start: 08-16-2024 End: 08-16-2024 Bamboo flowsheet Joel Flores DO Work Phone: [facility] Start: 08-16-2024 End: 08-16-2024 Bamboo flowsheet Joel Flores DO Work Phone: [facility] Start: 08-02-2024 End: 08-02-2024 Office outpatient visit 25 minutes Joel Flores DO Work Phone: [facility] Comment on above: Strain of left ankle , initial encounter; Acute left ankle pain Start: 08-02-2024 End: 08-02-2024 ambulatory JOEL FLORES Not Available Start: 07-25-2024 End: 07-25-2024 ambulatory KIM RIVERA Not Available Start: 07-25-2024 End: 07-25-2024 Office outpatient new 45 minutes Kim Rivera MATERIAL REPROCESSING ASSOCIATE Work Phone: [facility] Comment on above: Strain of left ankle , initial encounter (Primary Dx); Acute left ankle pain Start: 07-30-2022 End: 07-31-[address] MOSES HUTCHISON Facility:[facility] Start: 06-22-2022 End: 06-22-2022 ambulatory ABDIFATAH GREENE Facility:[facility] Procedures Date Procedure Procedure Detail Performing Clinician Start: 08-02-2024 Strapping ankle &/foot Kusum Chambers MA Start: 07-25-2024 Radex ankle complete minimum 3 views Kim Rivera MATERIAL REPROCESSING ASSOCIATE Work Phone: Start: 07-30-[address] DANNA HUTCHISON Comment on above: Performed By: #### D ATBM, DATPSA #### [facility] [address] [place], [place] [address] Dr. Juan Richards Plan of Treatment Date Care Activity Detail Author Start: 08-16-2024 End: 08-16-2024 Patient encounter procedure 08/16/2024 4:00 PM EST Office Visit [facility] [address] [place] [address] [facility] Start: 08-02-2024 End: 08-02-2024 Patient encounter procedure 08/02/2024 6:00 PM EST Office Visit [facility] [address] [place] [address] [facility] Payers Date Payer Category Payer Worker's Compensation 1.2.84 [id number] 2024 Worker's Compensation [id number] 1969 Unknown [id number] 2.16.84 [id number] 1969 Unknown [id number] 2.16.84 [id number] 1969 Unknown [id number] 2.16.84 [id number] 1969 Unknown [id number] 2.16.84 [id number] 1969 Unknown [id number] 2.16.84 [id number] 1969 Unknown [id number] 2.16.84 [id number] 1969 Unknown [id number] 2.16.84 [id number] 1969 Unknown [id number] 2.16.84 [id number] 1969 Unknown [id number] 2.16.84 [id number] 1969 Unknown [id number] 2.16.84 [id number] 1959 Self-pay 1960 Unknown [id number] Unknown [id number] 2.16.84 [id number] Social History Date Type Detail Facility [facility] [...] male Pt presents today 2024 for a [facility] follow up visit - ASUNCION: Roula Fontaine . DOI: 05/15/2024 . 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 DOI: 05/15/2024 . 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 Case discussed with Christen from [employer] [facility]. 2. Acute left ankle pain Dx reviewed [...] illness Narrative Pt presents today for a [facility] initial visit - ASUNCION: Roula Fontaine. DOI: 05/15/2024 . Job Title: [employer] Pt states that while working they I [...] 3+ views left documented in this encounter [facility] Healthcare Evaluation note Note Date & Type Note Facility Evaluation note Diagnosis Strain of left ankle, initial encounter- Primary Acute left ankle pain documented in this encounter [facility] Healthcare Evaluation note Note Date & Type Note Facility Evaluation note Diagnosis Strain of left ankle, initial encounter Acute left ankle pain documented in this encounter [facility] Healthcare Evaluation note Note Date & Type Note Facility Evaluation note Diagnosis Strain of left ankle, initial encounter- Primary documented in this encounter [facility] Healthcare Evaluation note Note Date & Type Note Facility Evaluation note Diagnosis Strain of left ankle, initial encounter Acute left ankle pain documented in this encounter [facility] Summary Purpose Family History No Family History Records FoundNo Family History Records Found Advance Directives No Advanced Directives Records FoundNo Advanced Directives Records Found Additional Source Comments (unrecognized sect ion and content) No Status Records FoundNo Status Records Found INFORMATION SOURCE (unrecogn ized section and content) DATE CREATED AUTHOR 07/31/2022 [facility] DATE CREATED AUTHOR 'S ORGANIZ ATION 09/07/2024 [facility] Care Teams (unrecognized sec tion and content) Lathe Puller Relationship Specialty Start Date End Date Moses Hutchison MD [address] [place] [address] PCP - General Family Medicine 07/25/24 Lathe Puller Relationship Specialty Start Date End Date Moses Hutchison MD [address] [facility] [place] [address] PCP - General Family Medicine 07/25/24 Lathe Puller Relationship Specialty Start Date End Date Moses Hutchison MD [address] [facility] [place] [address] PCP - General Family Medicine 07/25/24 Lathe Puller Relationship Specialty Start Date End Date Moses Hutchison MD [address] [phone] PCP - General Family Medicine 07/25/24 Lathe Puller Relationship Specialty Start Date End Date Moses Hutchison MD [address] [place] [address] PCP - General Family Medicine 07/25/24 Lathe Puller Relationship Specialty Start Date End Date Moses Hutchison MD [address] [place] [address] PCP - General Family Medicine 07/25/24 FOR [...] BE BASED ON THE PRIMARY CLINICAL RECORDS. [facility] [employer] [facility]. provides no warranty or guarantee of the accuracy or completeness of information in this document.
== END 2025-02-21 14:56 | disposition home or self-care (01) ==
LOC: CARD 14:56
PROVIDERS: PCP Internal Medicine Hematology & Oncology; Visit Provider Internal Medicine Hematology & Oncology
DX: D45 Polycythemia vera (principal)
CPT/HCPCS: 71046; 94010; 94729

== ENCOUNTER 2025-03-06 14:58 | Outpatient (OUT) | payer OTHER, SELFPAY ==
--- OUTSIDE RECORDS SUMMARY | 2024-12-19 10:45 | XMS_ITS ---
Author Organization The [facility] in [place] Address [address] [address] Care Team Providers Care Retread Technician Name Role Phone Samm Hutchison Primary Care Provider [phone] Starr Rome Unavailable [phone] REASON FOR VISIT MD New PT Hem Encounters Encounter Location Date Provider Diagnosis [facility] [address] [place] [address] 12/19/2024 Starr Rome Plan Of Treatment Next Appt Details Provider Name:Starr Rome , 04/03/2025 03:00:00 PM, [address] [place], [address], Progress Notes * Sylvain DUBOISDOB: (54 yo M)Acc No.[id number]:12/19/2024 UNLOCKED PROGRESS NOTE Progress Notes Patient: Дмитрий ALMARAZNICOLAS Sylvain Wei Provider: Bryan Rome M.D. :1970 A ge:54 Y S ex:Male Date:12/19/2024 Address:[address], [place], [place] Pcp:Samm Hutchison Subjective: * Chief Complaints: * 1 . New PT Hem. * Medical History: Objective: * Vitals: Assessment: Plan: * Treatment: * * Electronic signature of Evelio Rome MD, [id number] on 03/06/2025 at 03:00 PM EDT Sign off status: Pending Visit Status: C ANC (Cancelled) * Provider: Bryan Rome M.D. Date: 0 12/19/2024 Generated for Shaheen mishra/Yakov/Deven on: 0 03/06/2025 03:00 PM EDT
--- OUTSIDE RECORDS SUMMARY | 2024-12-19 11:00 | XMS_ITS ---
Author Organization The [facility] in [place] Address [address] [address] Care Team Providers Care Cat Sitter Name Role Phone Samm Hutchison Primary Care Provider Starr Rome Unavailable [phone] REASON FOR VISIT MD New PT Hem Encounters Encounter Location Date Provider Diagnosis [facility] [address] [place] [address] 12/19/2024 Starr Rome Plan Of Treatment Next Appt Details Provider Name:Starr Rome , 04/03/2025 03:00:00 PM, [address] [place], [address], Progress Notes * Sylvain DUBOISDOB: (54 yo M)Acc No.[id number]:12/19/2024 UNLOCKED PROGRESS NOTE Progress Notes Patient: Дмитрий ALMARAZNICOLAS Sylvain Wei Provider: Bryan Rome M.D. :1970 A ge:54 Y S ex:Male Date:12/19/2024 Address:[address], [place], [place] Pcp:Samm Hutchison Subjective: * Chief Complaints: * 1 . New PT Hem. * Medical History: Objective: * Vitals: Assessment: Plan: * Treatment: * * Electronic signature of Evelio Rome MD, [id number] on 03/06/2025 at 03:00 PM EDT Sign off status: Pending Visit Status: Jameson MCKNIGHT (Voice) * Provider: Bryan Rome M.D. Date: 0 12/19/2024 Generated for Shaheen mishra/Yakov/Deven on: 0 03/06/2025 03:00 PM EDT
--- OUTSIDE RECORDS SUMMARY | 2025-01-16 11:15 | XMS_ITS ---
Author Organization The [facility] in [place] Address [address] [place] [address] Care Team Providers Care Standards Engineer Name Role Phone Samm Hutchison Primary Care Provider Starr Rome Unavailable [phone] REASON FOR VISIT MD Encounters Encounter Location Date Provider Diagnosis [facility] [address] [place] [address] 01/16/2025 Starr Rome Plan Of Treatment Next Appt Details Provider Name:Starr Rome , 04/03/2025 03:00:00 PM, [address] [place] [address], [address], Progress Notes * Sylvain DUBOISDOB: (54 yo M)Acc No.[id number]:01/16/2025 UNLOCKED PROGRESS NOTE Progress Notes Patient: Дмитрий AARONSylvain BANERJEE Provider: Bryan Rome M.D. :1970 A ge:54 Y S ex:Male Date:01/16/2025 Address:[address], [place] Pcp:Samm Hutchison Subjective: * Chief Complaints: * 1 . MD. * Medical History: Objective: * Vitals: Assessment: Plan: * Treatment: * * Electronic signature of Evelio Rome MD, [id number] on 03/06/2025 at 03:00 PM EDT Sign off status: Pending Visit Status: Jameson MCKNIGHT (Voice) * Provider: Bryan Rome M.D. Date: 0 01/16/2025 Generated for Shaheen mishra/Yakov/Deven on: 0 03/06/2025 03:00 PM EDT
--- OUTSIDE RECORDS SUMMARY | 2025-02-06 11:15 | XMS_ITS ---
Author Organization [facility] in [place] Address [address] [place] [address] Care Team Providers Care Furnace Worker Name Role Phone Samm Hutchison Primary Care Provider Starr Rome Unavailable [phone] REASON FOR VISIT MD Encounters Encounter Location Date Provider Diagnosis [facility] [address] [place] [phone] 02/06/2025 Starr Rome Plan Of Treatment Next Appt Details Provider Name:Starr Rome , 04/03/2025 03:00:00 PM, [address] [place] [address], [phone], Progress Notes * Sylvain DUBOISDOB: (54 yo M)Acc No.[id number]:02/06/2025 UNLOCKED PROGRESS NOTE Progress Notes Patient: Дмитрий AARONSylvain BANERJEE Provider: Bryan Rome M.D. :1970 A ge:54 Y S ex:Male Date:02/06/2025 Address:[address], [place] Pcp:Samm Hutchison Subjective: * Chief Complaints: * 1 . MD. * Medical History: Objective: * Vitals: Assessment: Plan: * Treatment: * * Electronic signature of Eveilo Rome MD, [id number] on 03/06/2025 at 03:00 PM EDT Sign off status: Pending Visit Status: Jameson MCKNIGHT (Voice) * Provider: Bryan Rome M.D. Date: 0 02/06/2025 Generated for Shaheen mishra/Yakov/Deven on: 0 03/06/2025 03:00 PM EDT
--- OUTSIDE RECORDS SUMMARY | 2025-03-06 15:00 | XMS_ITS | Clinical Summary ---
Author Organization [facility] Address [address] [place] [place] [address], [address] [place] [address] Care Team Providers Care Rescue Boat Operator Name Role Phone Gerardo Hutchison MD [...] 10:19 AM 06/27/2014 12:54 PM Care Teams Rescue Boat Operator Relationship Specialty Start Date End Date Gerardo Hutchison MD [address] [place] [address] PCP - General 06/12/14
--- OUTSIDE RECORDS SUMMARY | 2025-03-06 15:01 | XMS_ITS | Patient Health Record ---
Author Organization [facility] in [place] Address [address] [place] [address] Care Team Providers Care Rod Welder Name Role Phone Samm Hutchison Primary Care Provider [phone] Starr Rome Unavailable [phone] Allergies Allergen (clinical drug ingredient) Drug/Non Drug Allergy documented on EMR Reaction Allergy Type Onset Date Status lisinopril Lisinopril cough Drug Allergy Activ e Substance with sulfonamide structure and antibacterial mechanism of action (substance) Sulfa Antibiotics Unknown Drug Allergy Active Results Component Value Reference Range Notes CBC AUTO DIFF Reviewed date:11/26/2024 12:18:19 PM Interpretation: Performing Lab: Notes/Report: [facility] , White Blood Count 5.7 [...] 3/uL Performing Lab: see note ML - [facility] FREE T3 Reviewed date:11/26/2024 12:18:19 PM Interpretation: Performing Lab: Notes/Report: [facility] , Free T3 3.20 2.18-3.98 pg/mL Performing Lab: see note ML - [facility] GLYCOHEMOGLOBIN A1C Reviewed date:11/26/2024 12:18:19 PM Interpretation: Performing Lab: Notes/Report: [facility] , Glycohemoglobin A1C 5.6 4.5-6.2 % ADA RECOMMENDED LIMIT 4.0 - 6.0 ADA THERAPEUTIC TARGET < 7.0 ACTION SUGGESTED > 7.0 Estimated Average Glucose 114 Performing Lab: see note ML - [facility] LB LIPID PROFILE Reviewed date:11/26/2024 12:18:19 PM Interpretation: Performing Lab: Notes/Report: [facility] , Triglycerides 149 <=150 mg/dL [...] RISK Performing Lab: see note ML - [facility] LB PROF 14(COMP METB) Reviewed date:11/26/2024 12:18:19 PM Interpretation: Performing Lab: Notes/Report: [facility] , Sodium 141 136-145 mmol/L [...] 1.1 Performing Lab: see note ML - [facility] PSA SCREENING Reviewed date:11/26/2024 12:18:19 PM Interpretation: Performing Lab: Notes/Report: [facility] , Prostate Specific Antigen Scrn 0.88 <=4.00 ng/mL Performing Lab: see note ML - [facility] LB T4 Reviewed date:11/26/2024 12:18:19 PM Interpretation: Performing Lab: Notes/Report: [facility] , T4 Thyroxine 6.60 4.50-12.10 ug/dL Performing Lab: see note ML - [facility] LB TSH Reviewed date:11/26/2024 12:18:19 PM Interpretation: Performing Lab: Notes/Report: [facility] , Thyroid Stimulating Hormone 1.573 0.358-3.740 u IU/mL Performing Lab: see note - [facility] LB CBC AUTO DIFF Reviewed date:11/28/2024 04:40:29 PM Interpretation: Performing Lab: Notes/Report: [facility] , White Blood Count 8.1 [...] Performing Lab: see note ML - [facility] LB CBC AUTO DIFF (Not yet revie wed by provider) Interpretation: Performing Lab: Notes/Report: [facility] , White Blood Count 7.9 [...] fL Performing Lab: see note ML - [facility] LB FERRITIN (Not yet reviewed b y provider) Interpretation: Performing Lab: Notes/Report: [facility] , Ferritin 116.0 26.0-388.0 ng/mL Performing Lab: see note ML - [facility] LB IRON AND TIBC (Not yet revie wed by provider) Interpretation: Performing Lab: Notes/Report: [facility] , Iron 80.0 65.0-175.0 ug/dL Total Iron Binding Capacity 290.0 250.0-450.0 u g/dL Percent Iron Saturation 27.6 Performing Lab: see note ML - [facility] LB Erythropoietin (EPO), Serum (Not yet reviewed by provider) Interpretation: Performing [facility]: [facility] Erythropoietin (EPO), Serum 2.2 2.6-18.5 mIU/ mL Receptor DxI 800 Immunoassay System Values obtained with different assay methods or kits cannot be used interchangeably. Results cannot be interpreted as absolute evidence of the presence or absence of malignant disease. Performed at: [facility] [address] [id number] Bracelet Form Coverer: Bruno Leon PhD, Phone: [phone] Performing Lab: see note - [facility] HEMOGLOBIN (Not yet reviewed by provider) Interpretation: Performing Lab: Notes/Report: [facility] , Hemoglobin 16.7 14.0-18.0 g/dL Performing Lab: see note ML - [facility] LB CBC AUTO DIFF (Not yet revie wed by provider) Interpretation: Performing Lab: Notes/Report: [facility] , White Blood Count 6.5 [...] 3/uL Performing Lab: see note ML - [facility] LB FERRITIN (Not yet reviewed b y provider) Interpretation: Performing Lab: Notes/Report: [facility] , Ferritin 189.0 26.0-388.0 ng/mL Performing Lab: see note ML - [facility] LB IRON AND TIBC (Not yet revie wed by provider) Interpretation: Performing Lab: Notes/Report: [facility] , Iron 130.0 65.0-175.0 ug/dL Total Iron Binding Capacity 284.0 250.0-450.0 u g/dL Percent Iron Saturation 45.8 Performing Lab: see note ML - [facility] LB PROF CHEM 8 (BAS METB) (Not yet reviewed by provider) Interpretation: Performing Lab: Notes/Report: [facility] , Sodium 139 136-145 mmol/L [...] Performing Lab: see note ML - [facility] LB XR chest 2V (Not yet reviewe d by provider) Interpretation: Performing Lab: Notes/Report: Source Facility: [facility]-[address] [place] [address] [place] [address] XRay Report Signed Patient: JOHN DUBOIS MR#: [id number] : 1970 Acct:[id number] Age/Sex: 54 / M ADM Date: 02/21/25 Loc: CARD Attending Dr: Starr Rome M.D. Ordering Physician: Starr Rome M.D. Date of Service: 02/21/25 Procedure(s): XR chest 2V Accession Number(s): [id number] cc: Starr Rome M.D. [place] [address] Patient Name: JOHN DUBOIS MRN: [id number] date: 1970 Sex: M Assigned Patient Location: CARD Current Patient Location: CARD Accession/Order Number: [id number] Exam Date: 02/21/2025 15:44 Report Date: 02/21/2025 15:58 At the request of: STARR ROME MD Procedure: XR chest 2V Chest 2 views CLINICAL HISTORY: Wheezing, Polycythemia COMPARISON: None FINDINGS: Heart normal size. Lungs are clear. No free air. XR/XR chest 2V IMPRESSION: NO ACUTE CARDIOPULMONARY ABNORMALITY. Impression dictated by: Hi Hays Jr., D.O. 02/21/2025 3:58 PM Dictation Location: [place] [address] Electronically authenticated by: [id number] Y Date: 02/21/2025 15:58 Dictated By: Hi Hays M.D. Signed By: 02/21/25 1601 DD/ 1558 TD/TT: Sofa Inspector: Erythrocyte Sedimentation Ra te (Not yet reviewed by provider) Interpretation: Performing Lab: Notes/Report: [facility] , Erythrocyte Sedimentation Rate 9 <=20 mm/hr Performing Lab: see note ML - [facility] LB LDH (Not yet reviewed by pro vider) Interpretation: Performing Lab: Notes/Report: [facility] , Lactate Dehydrogenase 190 85-227 U/L Performing Lab: see note - [facility] LB CRP (Not yet reviewed by pro vider) Interpretation: Performing Lab: Notes/Report: [facility] , C Reactive Protein 0.73 <=0.50 mg/dL Performing Lab: see note ML - [facility] LB Occult Blood* Reviewed date:11/27/2024 06:40:17 PM Interpretation: Performing Lab: Notes/Report: [facility] , Occult Blood Negative Performing Lab: see note - [facility] LB Manual Differential (Not yet reviewed by provider) Interpretation: Performing Lab: Notes/Report: [facility] , Segmented Neutrophils % Manual [...] 3/uL Performing Lab: see note ML - [facility] LB Reason For Referral Diagnosis 1 Polycythemia (D75.1) Referral Organization [facility] Referring Provider First Name Samm Referring Provider Last Name Foster [facility]erring Provider [facility] Referred Organization [facility] Referred Provider Starr Rome Referred Address [address],[place], [place],[address], Referred Provider Specialty Hematology/O ncology Referral Priority Routine Medications Medication SIG (Take, Route, Fr equency, Duration) Notes Start Date End Date Status Cetirizine HCl 10 MG 1 tablet Orally Onc e a day; Duration: 30 days 09/26/2024 Active Meloxicam 15 MG 1 tablet Orally Once a day; Duration: 30 days 11/22/2024 Active Omeprazole 20 MG 1 capsule 1/2 to 1 h our before morning meal Orally Once a day; Duration: 30 days 09/15/2024 Active Irbesartan 150 MG TAKE 1 TABLET BY HILL EVERY DAY FOR 30 DAYS; Duration: 30 Ac tive Cefdinir 300 MG 2 capsule Orally onc e a day; Duration: 10 days 01/29/2025 Active Social History Tobacco [...] W/U Status Risk Notes Problem Well adult (027522538) Well adult (Z00.00) Active confirmed Problem Plantar fasciitis (209085083) Plantar fasciitis (M72.2) Active confirmed Problem Contact dermatitis (15785374) Contact dermatitis (L25.9) Active confirmed Problem Muscle spasm (61824145) Muscle spasm (M62.838) Active confirmed Problem Polycythemia (272831108) Polycythemia (D75.1) Active confirmed Vital Signs Blood pressure diastolic 80 mm Hg 11/22/2024 Height 68 in 11/22/2024 Blood pressure systolic 132 mm Hg 11/22/2024 Weight 199 lbs 11/22/2024 BMI 30.25 kg/m2 11/22/2024 Encounters Encounter Location Date Provider Diagnosis [facility] On[facility] [address] [place] [address] 12/19/2024 Starr [facility] On[facility] [address] [place] [address] [facility] [address] [place] [address] 02/06/2025 Starr Rome [facility] [address] [facility] [place] [address] 11/22/2024 Samm Hutchison Well adult Z00.00 an d Plantar fasciitis M72.2 [facility] [address] [facility] [place] [address] 10/11/2024 Samm Hutchison [facility] [address] [facility] [place] [address] 11/20/2024 Samm Hutchison [facility] [address] [facility] [place] [address] 11/26/2024 Samm Hutchison Polycythemia D75.1 [facility] [address] [facility] [place] [address] 11/28/2024 Samm Hutchison Polycythemia D75.1 [facility] [address] [facility] [place] [address] 01/29/2025 Samm Hutchison [facility] [address] [facility] [place] [address] 06/12/[address] [facility] [address] [place] [address] 09/15/2024 Samm Hutchison [facility] [address] [facility] [place] [address] 09/26/2024 Samm Hutchison Assessments Encounter Date Diagnosis (ICD Code) Assessment [...] HEMOGLOBIN A1C (GLYCO) 07/07/2023 LIPID PANEL (CHOL/TRIG/HDL/LDL) 01/24/20 24 LIPID PANEL (CHOL/TRIG/HDL/LDL) 11/23/19 25 CBC WITH [...] (BAS METB) 02/06/2025 THYROID PANEL (T4/TSH/FREE T3) 5 Erythrocyte Sedimentation Rate 5 XR chest 2V 02/21/2025 Manual Differential 12/20/2024 PSA, SCREENING 11/22/2024 Erythropoietin (EPO), Serum 12/20/2024 CMP (COMP MET QUINONES) w/eGFR CKD-EPI 2024 CBC WITH DIFF 11/22/2024 Next Appt Details Provider Name:Starr Rome , 04/03/2025 03:00:00 PM, [address] [place], [address], Insurance Providers Payer Name Payer Address Payer Phone Subscriber Number Group Number Insured Name Patient Relationship to Insured Coverage Start Date Coverage End Date MMO [employer] [address] [place] [address] [phone] [id number] John Mcdonough Self - patient is the insured Medications Administered Medication Instructions Date of Administration Dosage Notes Kenalog-40 01/06/2024 80 mg Medical (General) History Medical History History ICD Code Anxiety F41.9 Essential hypertension I10 GERD (gastroesophageal reflux disease) K 21.9 Insomnia G47.00 Surgical History Surgery Date(Month/Year) Plate and Seven screws in right ankle Meniscectomy lateral
--- OUTSIDE RECORDS SUMMARY | 2025-03-06 15:03 | XMS_ITS | CCD ---
Author Organization [facility] Care Team Providers Care Matcher Offbearer Name Role Phone DR MOSES HUTCHISON Consulting Unavailable JENNIFER, DR LOPES Primary Care Unavailable REQUEST, NONE LISTED Attending Jonela ble REQUEST, NONE LISTED Admitting Unavaila ABDIFATAH Bowden Attending Unavailable ABDIFATAH GREENE Consulting Unavailable ABDIFATAH GREENE Admitting Unavailable Moses Hutchison MD Primary Care Provider [phone] KIM RIVERA Attending Unavailable KIM RIVERA Referring [...] CAM Boot size M given to pt Trunkbow Wing-Wheel [employer]car e XR ANKLE 3+ VIEWS LEFTon XR [...] signed and approved by the interpreting Radiologist. [facility] [employer] Radiology Study observation (narrative) [facility] Woo[employer] XR Ankle - left 3 ViewsOrder ed By: Norbert Sarkar on 07-25-2024 [facility] Work Phone: CBC AUTO DIFFon 07-30-2022 BASO # 0.0 103/ul Normal 0.0-0.1 [facility] Comment on above: Performed By: #### D ATCBC #### [facility] [address] [place] [address] Dr. Juan Richards Basophils/100 WBC (Bld) 0.4 % Normal 0.2-2.0 [facility] Comment on above: Performed By: #### D ATCBC #### [facility] [address] [place] [address] Dr. Juan Richards EO # 0.2 103/ul Normal 0.0-0.7 [facility] Comment on above: Performed By: #### D ATCBC #### [facility] [address] [place] [address] Dr. Juan Richards Eosinophils/100 WBC (Bld) 2.1 % Normal 0.9-7.0 [facility] Comment on above: Performed By: #### D ATCBC #### [facility] [address] [place] [address] Dr. Juan Richards Erythrocyte distribution width (RBC) [Ratio] 13.6 % Normal 11.0-15.0 [facility] Comment on above: Performed By: #### D ATCBC #### [facility] [address] [place] [address] Dr. Juan Richards Hematocrit (Bld) [Volume fraction] 42.3 % Normal 42.0-54.0 [facility] Comment on above: Performed By: #### D ATCBC #### [facility] [address] [address] [address] Juan Richards Hemoglobin (Bld) [Mass/Vol] 14.5 g/dL Normal 14.0-18.0 [facility] Comment on above: Performed By: #### D ATCBC #### [facility] [address] [place] [address] Dr. Juan Richards IG # 0.03 10e3/ul Normal 0.00-0.03 [facility] Comment on above: Performed By: #### D ATCBC #### [facility] [address] [place] [address] Dr. Juan Richards IG % 0.4 % Normal 0.0-0.5 [facility] Comment on above: Performed By: #### D ATCBC #### [facility] [address] [place] [address] Dr. Juan Richards LYMPH # 2.3 103/ul Normal 1.2-3.8 [facility] Comment on above: Performed By: #### D ATCBC #### [facility] [address] [place] [address] Dr. Juan Richards Lymphocytes/100 WBC (Bld) 27.8 % Normal 20.5-60.0 [facility] Comment on above: Performed By: #### D ATCBC #### [facility] [address] [place] [address] Dr. Juan Richards MCH (RBC) [Entitic mass] 30.7 pg Normal 25.9-34.0 [facility] Comment on above: Performed By: #### D ATCBC #### [facility] [address] [place] [address] Dr. Juan Richards MCHC (RBC) [Mass/Vol] 34.3 g/dL Normal 29.9-35.2 [facility] Comment on above: Performed By: #### D ATCBC #### [facility] [address] [address] [address] Juan Richards MCV (RBC) [Entitic vol] 89.6 fL Normal 80.0-94.0 [facility] Comment on above: Performed By: #### D ATCBC #### [facility] [address] [address] [address] Juan Richards MONO # 0.9 103/ul Critically high 0.3-0.[address] [facility] Comment on above: Performed By: #### D ATCBC #### [facility] [address] [address] [address] Juan Richards Monocytes/100 WBC (Bld) 11.4 % Normal 1.7-12.0 [facility] Comment on above: Performed By: #### D ATCBC #### [facility] [address] [place] [address] Dr. Juan Richards NEUT # 4.7 103/ul Normal 1.4-6.5 [facility] Comment on above: Performed By: #### D ATCBC #### [facility] [address] [place] [address] Dr. Juan Richards Neutrophils/100 WBC (Bld) 57.9 % Normal 43.0-75.0 [facility] Comment on above: Performed By: #### D ATCBC #### [facility] [address] [place] [address] Dr. Juan Richards Platelet mean volume (Bld) [Entitic vol] 9.4 fL Critically low 9.5-13.5 [facility] Comment on above: Performed By: #### D ATCBC #### [facility] [address] [place] [address] Dr. Juan Richards PLT 323 103/ul Normal 150-450 [facility] Comment on above: Performed By: #### D ATCBC #### [facility] [address] [place] [address] Dr. Juan Richards RBC 4.72 106/ul Normal 4.70-6.10 [facility] Comment on above: Performed By: #### D ATCBC #### [facility] [address] [address] [address] Juan Richards WBC 8.2 103/ul Normal 4.0-11.0 [facility] Comment on above: Performed By: #### D ATCBC #### [facility] [address] [place] [address] Dr. Juan Richards KAMALJIT- BMP WITH LIPIDon 2022 Anion gap [Moles/Vol] 12.3 mmol/L Normal [facility] Comment on above: Performed By: #### D ATBMP, DATPSA #### [facility] [address] [place] [address] Dr. Juan Richards Calcium [Mass/Vol] 9.2 mg/dL Normal 8.5-10.1 [facility] Comment on above: Performed By: #### D ATBMP, DATPSA #### [facility] [address] [place] [address] Dr. Juan Richards Chloride [Moles/Vol] 102 mmol/L Normal 98-107 [facility] Comment on above: Performed By: #### D ATBMP, DATPSA #### [facility] [address] [place] [address] Dr. Juan Richards Cholesterol [Mass/Vol] 217 mg/dL Critically high <=200 [facility] Comment on above: Performed By: #### D ATBMP, DATPSA #### [facility] [address] [place] [address] Dr. Juan Richards Cholesterol in HDL [Mass/Vol] 67 mg/dL Critically high 40-60 [facility] Comment on above: Performed By: #### D ATBMP, DATPSA #### [facility] [address] [place] [address] Dr. Juan Richards Cholesterol in LDL [Mass/Vol] 137.8 mg/dL Normal [facility] Comment on above: Performed By: #### D ATBMP, DATPSA #### [facility] [address] [place] [address] Dr. Juan Richards CO2 [Moles/Vol] 28.6 mmol/L Normal 21.0-32.0 [facility] Comment on above: Performed By: #### D ATBMP, DATPSA #### [facility] [address] [address] [address] Juan Richards Creatinine [Mass/Vol] 0.92 mg/dL Normal 0.70-1.30 [facility] Comment on above: Performed By: #### D ATBMP, DATPSA #### [facility] [address] [address] [address] Juan Richards EGFR-AF NAURUAN >60 Normal >=60 [facility] Comment on above: Performed By: #### D ATBMP, DATPSA #### [facility] [address] [address] [address] Juan Richards EGFR-NON AF NAURUAN >60 Normal >=60 [facility] Comment on above: Performed By: #### D ATBMP, DATPSA #### [facility] [address] [address] [address] Juan Richards Glucose [Mass/Vol] 94 mg/dL Normal 74-106 [facility] Comment on above: Performed By: #### D ATBMP, DATPSA #### [facility] [address] [address] [address] Juan Richards HDL NORMAL > or = 60 mg/dl - LO W CARDIOVASCULAR RISK <40 mg/dl - HIGH CARDIOVASCULAR RISK Normal [facility] Comment on above: Performed By: #### D ATBMP, DATPSA #### [facility] [address] [address] [address] Juan Richards LDL CALC NORMAL SEE BELOW Normal [facility] Comment on above: Result Comment: <100 mg/dl OPTIMAL 100 - 129 mg/dl NEAR OR ABOVE OPTIMAL 130 - 159 mg/dl BORDERLINE HIGH 160 - 189 mg/dl HIGH >190 mg/dl VERY HIGH Performed By: #### D ATBMP, DATPSA #### [facility] [address] [address] [address] Juan Richards Potassium [Moles/Vol] 3.9 mmol/L Normal 3.5-5.1 [facility] Comment on above: Performed By: #### D ATBMP, DATPSA #### [facility] [address] [place] [address] Dr. Juan Richards Sodium [Moles/Vol] 139 mmol/L Normal 136-145 [facility] Comment on above: Performed By: #### D ATBMP, DATPSA #### [facility] [address] [place] [address] Dr. Juan Richards Triglyceride [Mass/Vol] 61 mg/dL Normal <=150 [facility] Comment on above: Performed By: #### D ATBMP, DATPSA #### [facility] [address] [place] [address] Dr. Juan Richards Urea nitrogen [Mass/Vol] 18.0 mg/dL Normal 7.0-18.0 [facility] Comment on above: Performed By: #### D ATBMP, DATPSA #### [facility] [address] [place] [address] Dr. Juan Richards Urea nitrogen/Creatinine [Mass ratio] 19.6 mg/mg Normal [facility] Comment on above: Performed By: #### D ATP, DATPSA #### [facility] [address] [place] [address] Dr. Juan Richards VLDL CALC 12.2 mg/dL Normal [facility] Comment on above: Performed By: #### D ATBMP, DATPSA #### [facility] [address] [place] [address] Dr. Juan Richards Covid-19 PCR (CVDTB)on SARS-CoV-2 (COVID-19) RNA DAMION+probe Ql (Unsp spec) Detected Abnormal NOT DETECTED [facility] Comment on above: Result Comment: This test is not yet approved or cleared by the [place] FDA. When there are no FDA-approved or cleared tests available, and other criteria are met, FDA can make tests available under an emergency access mechanism called an Emergency Use Authorization (EUA). The EUA for this test is supported by the Federal Appellate Law Clerk of Health and Human Service's declaration that [...] used). Performed By: #### C VDTB #### [facility] [address] [place] [address] Dr. Juan Richards INFLUENZA A AND B AGon 06-22 [facility] SEE BELOW Normal [facility] Comment on above: Result Comment: Nega tive for Flu A protein angiten. Infection due to Flu A cannot be ruled out. Flu A angiten in the sample may be below the detection limit of the test. Performed By: #### I NFLUAB #### [facility] [address] [place] [address] Dr. Juan Richards [facility] SEE BELOW Normal [facility] Comment on above: Result Comment: Nega tive for Flu B protein antigen. Infection due to Flu B cannot be ruled out. Flu B antigen in the sample may be below the detection limit of the test. Performed By: #### I NFLUAB #### [facility] [address] [place] [address] Dr. Juan Richards INFLUENZA A AG Negative Normal NEGATIVE SEE COMMENT [facility] Comment on above: Performed By: #### I NFLUAB #### [facility] [address] [place] [address] Dr. Juan Richards INFLUENZA B AG Negative Normal NEGATIVE SEE COMMENT [facility] Comment on above: Performed By: #### I NFLUAB #### [facility] [address] [place] [address] Dr. Juan Richards Vital Signs Date Time Vital Sign Value Performing Clinician Faci lity 2024 15:32-0400 Body temperature 98.01 [degF] Joel Flores DO Work Phone: [facility] 2024 15:32-0400 Body weight 90.72 kg Joel Flores DO Work Phone: [facility] 2024 15:32-0400 Diastolic blood pressure 80 mm[Hg] Joel Flores DO Work Phone: [facility] 2024 15:32-0400 Heart rate 80 /min Joel Flores DO Work Phone: [facility] 2024 15:32-0400 SaO2% (BldA) [Mass fraction] 99 % Joel Flores DO Work Phone: [facility] 2024 15:32-0400 Systolic blood pressure 122 mm[Hg] Joel Flores DO Work Phone: [facility] 08-16-2024 14:31-0500 Body temperature 97.11 [degF] Joel Flores DO Work Phone: [facility] 08-16-2024 14:31-0500 Body weight 90.72 kg Joel Flores DO Work Phone: [facility] 08-16-2024 14:31-0500 Diastolic blood pressure 80 mm[Hg] Joel Flores DO Work Phone: [facility] 08-16-2024 14:31-0500 Heart rate 71 /min Joel Flores DO Work Phone: [facility] 08-16-2024 14:31-0500 SaO2% (BldA) [Mass fraction] 97 % Joel Flores DO Work Phone: [facility] 08-16-2024 14:31-0500 Systolic blood pressure 128 mm[Hg] Joel Flores DO Work Phone: [facility] 08-02-2024 16:04-0500 Body temperature 98.01 [degF] Joel Flores DO Work Phone: [facility] 08-02-2024 16:04-0500 Body weight 90.72 kg Joel Flores DO Work Phone: [facility] 08-02-2024 16:04-0500 Diastolic blood pressure 80 mm[Hg] Joel Flores DO Work Phone: [facility] 08-02-2024 16:04-0500 Heart rate 74 /min Joel Flores DO Work Phone: [facility] 08-02-2024 16:04-0500 SaO2% (BldA) [Mass fraction] 98 % Joel Flores DO Work Phone: [facility] 08-02-2024 16:04-0500 Systolic blood pressure 112 mm[Hg] Joel Crewsconsuelo DO Work Phone: [facility] 07-25-2024 13:02-0500 Body temperature 97 [degF] Kim Rivera CIVIL PROJECT ENGINEER Work Phone: [facility] 07-25-2024 13:02-0500 Body weight 90.72 kg Kim Rivera CIVIL PROJECT ENGINEER Work Phone: [facility] 07-25-2024 13:02-0500 Diastolic blood pressure 80 mm[Hg] Kim Rivera CIVIL PROJECT ENGINEER Work Phone: [facility] 07-25-2024 13:02-0500 Heart rate 91 /min Kim Rivera CIVIL PROJECT ENGINEER Work Phone: [facility] 07-25-2024 13:02-0500 SaO2% (BldA) [Mass fraction] 96 % Kim Rivera CIVIL PROJECT ENGINEER Work Phone: [facility] 07-25-2024 13:02-0500 Systolic blood pressure 136 mm[Hg] Kim Rivera CIVIL PROJECT ENGINEER Work Phone: [facility] Healthcare Encounters Encounter Date Encounter Type Care Provider Facility Start: 2024 End: 2024 ambulatory JOEL FLORES Not Available Start: 2024 End: 2024 Office outpatient visit 15 minutes Joel Flores DO Work Phone: [facility] Comment on above: Strain of left ankle , initial encounter; Acute left ankle pain Start: 2024 End: 2024 Bamboo flowsheet Joel Flores DO Work Phone: [facility] Start: 2024 End: 2024 Bamboo flowsheet Joel Flores DO Work Phone: [facility] Start: 08-23-2024 End: 08-23-2024 ambulatory JOEL FLORES Not Available Start: 08-21-2024 End: 08-21-2024 ambulatory JOEL FLORES Not Available Start: 08-16-2024 End: 08-16-2024 ambulatory JOEL FLORES Not Available Start: 08-16-2024 End: 08-16-2024 Office outpatient visit 25 minutes Joel Flores DO Work Phone: [facility] Comment on above: Strain of left ankle , initial encounter (Primary Dx) Start: 08-16-2024 End: 08-16-2024 Bamboo flowsheet Joel Flores DO Work Phone: [facility] Start: 08-16-2024 End: 08-16-2024 Bamboo flowsheet Jole Flores DO Work Phone: [facility] Start: 08-02-2024 End: 08-02-2024 Office outpatient visit 25 minutes Joel Flores DO Work Phone: [facility] Comment on above: Strain of left ankle , initial encounter; Acute left ankle pain Start: 08-02-2024 End: 08-02-2024 ambulatory JOEL FLORES Not Available Start: 07-25-2024 End: 07-25-2024 ambulatory KIM RIVERA Not Available Start: 07-25-2024 End: 07-25-2024 Office outpatient new 45 minutes Kim Rivera CIVIL PROJECT ENGINEER Work Phone: [facility] Comment on above: Strain of left ankle , initial encounter (Primary Dx); Acute left ankle pain Start: 07-30-2022 End: 07-31-[address] MOSES HUTCHISON Facility:[facility] Start: 06-22-2022 End: 06-22-2022 ambulatory ABDIFATAH GREENE Facility:[facility] Procedures Date Procedure Procedure Detail Performing Clinician Start: 08-02-2024 Strapping ankle &/foot Kusum Chambers MA Start: 07-25-2024 Radex ankle complete minimum 3 views Kim Rivera CIVIL PROJECT ENGINEER Work Phone: Start: 07-30-[address] DANNA HUTCHISON Comment on above: Performed By: #### D ATBM, DATPSA #### [facility] [address] [place], [place] [address] Dr. Juan Richards Plan of Treatment Date Care Activity Detail Author Start: 08-16-2024 End: 08-16-2024 Patient encounter procedure 08/16/2024 4:00 PM EST Office Visit [facility] [address] [place] [address] [facility] Start: 08-02-2024 End: 08-02-2024 Patient encounter procedure 08/02/2024 6:00 PM EST Office Visit [facility] [address] [place] [address] [facility] Payers Date Payer Category Payer Worker's Compensation [id number] [id number] 2024 Worker's Compensation [id number] 1969 Unknown [id number] 2.16.84 [id number] 1969 Unknown [id number] 2.16.84 [id number] 1969 Unknown [id number] 2.16.84 [id number] 1969 Unknown [id number] 2.16.84 [id number] 1969 Unknown [id number] 2.16.84 [id number] 1969 Unknown [id number] 2.16.84 [id number] 1969 Unknown [id number] 2.16.84 [id number] 1969 Unknown [id number] 2.16.84 [id number] 1969 Unknown [id number] 2.16.84 [id number] 1969 Unknown [id number] 2.16.84 [id number] 1959 Self-pay 1959 Unknown [id number] Unknown [id number] 2.16.84 [id number] Social History Date Type Detail [facility] [...] male Pt presents today 2024 for a [facility] follow up visit - ASUNCION: Roula Fontaine . DOI: 05/15/2024 . 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 [...] [] [x] Decreased ROM [x] [] Trauma [facility] Additional Comments: pt has not taken any [...] male Pt presents today 08/02/2024 for a [facility] follow up visit for left ankle/foot injury- ASUNCION: Roula Fontaine . DOI: 05/15/2024 . 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 Case discussed with Christen from [employer] [facility]. 2. Acute left ankle pain [...] illness Narrative Pt presents today for a [facility] initial visit - ASUNCION: Roula Fontaine. DOI: 05/15/2024 . 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 while working they I [...] 3+ views left documented in this encounter [facility] Healthcare Evaluation note Note Date & Type Note Facility Evaluation note Diagnosis Strain of left ankle, initial encounter- Primary Acute left ankle pain documented in this encounter [facility] Healthcare Evaluation note Note Date & Type Note Facility Evaluation note Diagnosis Strain of left ankle, initial encounter Acute left ankle pain documented in this encounter [facility] Healthcare Evaluation note Note Date & Type Note Facility Evaluation note Diagnosis Strain of left ankle, initial encounter- Primary documented in this encounter [facility] Healthcare Evaluation note Note Date & Type Note Facility Evaluation note Diagnosis Strain of left ankle, initial encounter Acute left ankle pain documented in this encounter [facility] Healthcare Summary Purpose Family History No Family History Records FoundNo Family History Records Found Advance Directives No Advanced Directives Records FoundNo Advanced Directives Records Found Additional Source Comments (unrecognized sect ion and content) No Status Records FoundNo Status Records Found INFORMATION SOURCE (unrecogn ized section and content) DATE CREATED AUTHOR 07/31/2022 [facility] DATE CREATED AUTHOR 'S ORGANIZ ATION 09/07/2024 [facility] Care Teams (unrecognized sec tion and content) Matcher Offbearer Relationship Specialty Start Date End Date Moses Hutchison MD [address] [place] [address] PCP - General Family Medicine 07/25/24 Matcher Offbearer Relationship Specialty Start Date End Date Moses Hutchison MD [address] [place] [facility] [address] PCP - General Family Medicine 07/25/24 Matcher Offbearer Relationship Specialty Start Date End Date Moses Hutchison MD [address] [place] [facility] [address] PCP - General Family Medicine 07/25/24 Matcher Offbearer Relationship Specialty Start Date End Date Moses Hutchison MD [address] [phone] PCP - General Family Medicine 07/25/24 Matcher Offbearer Relationship Specialty Start Date End Date Moses Hutchison MD [address] [place] [address] PCP - General Family Medicine 07/25/24 Matcher Offbearer Relationship Specialty Start Date End Date Moses Hutchison MD [address] [place] [address] PCP - General Family Medicine 07/25/24 FOR [...] BE BASED ON THE PRIMARY CLINICAL RECORDS. [facility] [employer] [facility]. provides no warranty or guarantee of the accuracy or completeness of information in this document.
[2025-03-06 15:16] LABS: Hematocrit 48.6 % (42.0-54.0); Hemoglobin 17.0 g/dL (14.0-18.0); Immature Granulocytes Abs Auto 0.01 10^3/uL (0.00-0.03); Immature Granulocytes Pct Auto 0.2 % (0.0-0.5); Lymphocytes Absolute Auto 1.8 10^3/uL (1.2-3.8); Mean Corpuscular HGB Conc 35.0 g/dL (29.9-35.2); Mean Corpuscular Hemoglobin 33.1 pg (25.9-34.0); Mean Corpuscular Volume 94.7 fL (80.0-94.0); Platelet Count 221 10^3/uL (150-450); Red Blood Count 5.13 10^6/uL (4.70-6.10); White Blood Count 6.3 10^3/uL (4.0-11.0)
== END 2025-03-06 14:59 | disposition home or self-care (01) ==
LOC: LAB 14:58
PROVIDERS: PCP Internal Medicine Hematology & Oncology; Visit Provider Internal Medicine Hematology & Oncology
DX: D45 Polycythemia vera (principal)
CPT/HCPCS: 36415; 85025

== ENCOUNTER 2025-04-03 14:37 | Outpatient (RCR) | payer OTHER, SELFPAY ==
[2025-04-03 15:19] LABS: Hematocrit 51.3 % (42.0-54.0); Hemoglobin 17.5 g/dL (14.0-18.0); Immature Granulocytes Abs Auto 0.01 10^3/uL (0.00-0.03); Immature Granulocytes Pct Auto 0.1 % (0.0-0.5); Lymphocytes Absolute Auto 1.6 10^3/uL (1.2-3.8); Mean Corpuscular HGB Conc 34.1 g/dL (29.9-35.2); Mean Corpuscular Hemoglobin 32.5 pg (25.9-34.0); Mean Corpuscular Volume 95.4 fL (80.0-94.0); Platelet Count 207 10^3/uL (150-450); Red Blood Count 5.38 10^6/uL (4.70-6.10); White Blood Count 6.9 10^3/uL (4.0-11.0)
[2025-04-03 15:34] LABS: Anion Gap 11.7; Blood Urea Nitrogen 16.0 mg/dL (7.0-18.0); Calcium 8.6 mg/dL (8.5-10.1); Carbon Dioxide 27.3 mmol/L (21.0-32.0); Chloride 104 mmol/L (98-107); Estimated GFR (African America >60 (>=60 mL/min/1.73m^2); Estimated GFR (Non-African Ame >60 (>=60 mL/min/1.73m^2); Glucose 103 mg/dL (74-106); Potassium 4.0 mmol/L (3.5-5.1); Sodium 139 mmol/L (136-145)
[2025-04-03 16:13] LABS: Iron 95.0 ug/dL (65.0-175.0); Percent Iron Saturation 31.3 %; Total Iron Binding Capacity 304.0 ug/dL (250.0-450.0)
[2025-04-03 16:27] LABS: Ferritin 102.0 ng/mL (26.0-388.0)
== END 2025-04-13 23:59 | disposition home or self-care (01) ==
LOC: HEMC 14:37
PROVIDERS: PCP Internal Medicine Hematology & Oncology; Visit Provider Internal Medicine Hematology & Oncology
DX: D75.1 Secondary polycythemia (principal); F17.290 Nicotine dependence, other tobacco product, uncomplicated; R06.2 Wheezing; E83.119 Hemochromatosis, unspecified
CPT/HCPCS: 36415; 80048; 82728; 83540; 83550; 85025; G0463